=== PATIENT | female | born 1950 | race Caucasian/White ===

== ENCOUNTER 2018-12-27 06:10 | Day surgery (SDC) | payer MEDICARE, MEDICAID ==
[2018-12-27] VITALS (23 sets, daily range): BP systolic 94–129; BP diastolic 61–91
[~2018-12-27] VITALS: Ht 170.2 cm; Wt 88.9 kg
[2018-12-27] MEDS ORDERED: fentaNYL/PF 50MCG/1 ML 2ML syringe IV ONE (06:30)
[2018-12-27] MEDS ORDERED: MIDAZolam 5mg/ml 2ml vial IV ONE (06:30)
[2018-12-27] MEDS ORDERED: normal saline 1000ml 1,000 ML IV SCH (06:30)
[2018-12-27 07:34] LABS: BASOPHILS % (AUTO) 0.6 % (0-1); EOSINOPHILS # (AUTO) 0.2 X10'3 (0-0.9); EOSINOPHILS % (AUTO) 2.8 % (0-6); HEMATOCRIT 41.7 % (35.0-45.0); HEMOGLOBIN 13.9 g/dl (12.0-16.0); LYMPHOCYTES # (AUTO) 2.2 X10'3 (1.1-4.8); LYMPHOCYTES % (AUTO) 39.9 % (21-51); MEAN CORPUSCULAR HEMOGLOBIN 29.2 PG (27.0-31.0); MEAN CORPUSCULAR HGB CONC 33.2 g/dL (33.0-36.5); MEAN CORPUSCULAR VOLUME 87.7 FL (78-98); MEAN PLATELET VOLUME 9.1 FL (7.4-10.4); MONOCYTES # (AUTO) 0.6 X10'3 (0-0.9); MONOCYTES % (AUTO) 10.1 % (2-12); NEUTROPHILS # (AUTO) 2.6 X10'3 (1.8-7.7); NEUTROPHILS % (AUTO) 46.6 % (42-75); PLATELET COUNT 247 X10'3 (140-440); RED BLOOD COUNT 4.76 X10'6 (4.20-5.60); RED CELL DISTRIBUTION WIDTH 14.4 % (11.5-14.5); WHITE BLOOD COUNT 5.5 X10'3 (4.5-11.0)
[2018-12-27 07:47] LABS: ALBUMIN 3.6 G/DL (3.4-5.0); ANION GAP 11 (8-16); BLOOD UREA NITROGEN 15 MG/DL (7-18); BUN/CREATININE RATIO 18.1 (6.6-38.0); CALCIUM 9.1 MG/DL (8.5-10.1); CHLORIDE 107 MMOL/L (99-107); CREATININE 0.83 MG/DL (0.40-0.90); GLUCOSE 113 MG/DL (70-104); MAGNESIUM 1.7 MG/DL (1.5-2.4); POTASSIUM 4.1 MMOL/L (3.5-5.1); SODIUM 143 MMOL/L (135-145); TOTAL CARBON DIOXIDE 25.3 MMOL/L (24-32); eGFR 69 ML/MIN
[2018-12-27 08:06] LABS: INR 1.1 INR; PROTHROMBIN TIME 10.8 SECONDS (9.0-12.0)
[2018-12-27] MEDS ORDERED: DICL100G15 TOP (08:28)
[2018-12-27] MEDS ORDERED: [UNRECOGNIZED DRUG - CODE] PO (08:29)
[2018-12-27] MEDS ORDERED: THYR30TA24 PO (08:30)
[2018-12-27] MEDS ORDERED: CLOP75TA16 PO (08:32)
[2018-12-27] MEDS ORDERED: ALBU8.5H8 IH (08:32)
[2018-12-27] MEDS ORDERED: ALIR150P INJ (08:33)
[2018-12-27] MEDS ORDERED: AMIO200T27 PO (08:35)
[2018-12-27] MEDS ORDERED: APIX5TAB3 PO (08:36)
[2018-12-27] MEDS ORDERED: METO50TA7 PO (08:38)
[2018-12-27] MEDS ORDERED: amiodarone 150mg/dext, iso-os 200 ML IV ONE (09:40)
[2018-12-27] MEDS: metoprolol tartrate 1mg/ml inj IV SCH ×2 (10:39→10:46)
[2018-12-27] MEDS ORDERED: metoprolol tartrate 1mg/ml inj IV ONE (10:50)
== END 2018-12-27 16:35 | disposition home or self-care (01) ==
LOC: SSTAY O 06:10
PROVIDERS: ATTEND Internal Medicine Cardiovascular Disease
DX: I48.1 Persistent atrial fibrillation (principal); I08.1 Rheumatic disorders of both mitral and tricuspid valves; I10 Essential (primary) hypertension; Q21.1 Atrial septal defect; J45.909 Unspecified asthma, uncomplicated; E78.5 Hyperlipidemia, unspecified; I45.81 Long QT syndrome; I25.2 Old myocardial infarction; I25.118 Atherosclerotic heart disease of native coronary artery with other forms of angina pectoris; E03.9 Hypothyroidism, unspecified; Z90.12 Acquired absence of left breast and nipple; Z98.49 Cataract extraction status, unspecified eye; Z79.01 Long term (current) use of anticoagulants; Z87.891 Personal history of nicotine dependence; Z79.1 Long term (current) use of non-steroidal anti-inflammatories (NSAID); Z95.5 Presence of coronary angioplasty implant and graft; Z88.6 Allergy status to analgesic agent; Z85.3 Personal history of malignant neoplasm of breast; Z98.41 Cataract extraction status, right eye; Z98.42 Cataract extraction status, left eye; Z86.74 Personal history of sudden cardiac arrest; Z86.73 Personal history of transient ischemic attack (TIA), and cerebral infarction without residual deficits; Z88.5 Allergy status to narcotic agent; Z98.890 Other specified postprocedural states; Z79.899 Other long term (current) drug therapy; Z88.8 Allergy status to other drugs, medicaments and biological substances
CPT/HCPCS: 36415; 80048; 83735; 85025; 85610; 92960; 93005; 93312; 93325; J0282; J2250; J3010; J7030; J3490

== ENCOUNTER 2019-07-21 11:42 | Day surgery (SDC) | payer MEDICARE, MEDICAID ==
[~2019-07-21] VITALS: Ht 170.2 cm; Wt 95.7 kg
[~2019-07-21 11:42] MED LIST: ALBU8.5H8 IH; ALIR150P INJ; AMIO200T27 PO; APIX5TAB3 PO; CLOP75TA8 PO; DICL100G15 TOP; METO50TA7 PO; THYR30TA24 PO; [UNRECOGNIZED DRUG - CODE] PO
[2019-07-21 12:16] VITALS: BP 117/87
[2019-07-21] MEDS ORDERED: DEC1T PO (12:21)
[2019-07-21] MEDS ORDERED: THY60T PO (12:21)
[2019-07-21] MEDS ORDERED: DIGO250T PO (12:21)
[2019-07-21] MEDS ORDERED: DILT180C53 PO (12:21)
[2019-07-21] MEDS ORDERED: diphenhydrAMINE 25mg capsule PO PRN (12:25)
[2019-07-21] MEDS ORDERED: normal saline 1,000 ML IV SCH (12:25)
[2019-07-21 12:40] LABS: BASOPHILS # (AUTO) 0.1 X10'3 (0-0.2); BASOPHILS % (AUTO) 1.5 % (0-1); EOSINOPHILS # (AUTO) 0.1 X10'3 (0-0.9); EOSINOPHILS % (AUTO) 1.3 % (0-6); HEMATOCRIT 39.3 % (35.0-45.0); HEMOGLOBIN 13.3 g/dl (12.0-16.0); LYMPHOCYTES # (AUTO) 2.8 X10'3 (1.1-4.8); LYMPHOCYTES % (AUTO) 38.5 % (21-51); MEAN CORPUSCULAR HEMOGLOBIN 30.7 PG (27.0-31.0); MEAN CORPUSCULAR HGB CONC 33.8 g/dL (33.0-36.5); MEAN CORPUSCULAR VOLUME 90.8 FL (78-98); MEAN PLATELET VOLUME 8.5 FL (7.4-10.4); MONOCYTES # (AUTO) 0.6 X10'3 (0-0.9); MONOCYTES % (AUTO) 8.3 % (2-12); NEUTROPHILS # (AUTO) 3.6 X10'3 (1.8-7.7); NEUTROPHILS % (AUTO) 50.4 % (42-75); PLATELET COUNT 243 X10'3 (140-440); RED BLOOD COUNT 4.33 X10'6 (4.20-5.60); RED CELL DISTRIBUTION WIDTH 15.1 % (11.5-14.5); WHITE BLOOD COUNT 7.2 X10'3 (4.5-11.0)
[2019-07-21 12:46] LABS: ALBUMIN 3.6 G/DL (3.4-5.0); ANION GAP 8 (8-16); BLOOD UREA NITROGEN 19 MG/DL (7-18); BUN/CREATININE RATIO 22.1 (6.6-38.0); CALCIUM 9.2 MG/DL (8.5-10.1); CHLORIDE 109 MMOL/L (99-107); CREATININE 0.86 MG/DL (0.40-0.90); GLUCOSE 98 MG/DL (70-104); MAGNESIUM 1.7 MG/DL (1.5-2.4); SODIUM 143 MMOL/L (135-145); TOTAL CARBON DIOXIDE 25.8 MMOL/L (24-32); eGFR 66 ML/MIN
[2019-07-21] MEDS ORDERED: fentaNYL/PF 50MCG/1 ML 2ML syringe ONE ×2 (14:02→14:50)
[2019-07-21] MEDS ORDERED: midazolam 2 mg/2 ml injection ONE ×2 (14:02→14:50)
[2019-07-21] MEDS ORDERED: vancomycin 1,000mg inj ONE (14:03)
[2019-07-21] MEDS ORDERED: LIDOcaine 1% W/epiNEPHrine 1:100,000 20ml vial ONE (14:03)
[2019-07-21] MEDS ORDERED: vancomycin/NS 1 GM ADD-VANTAGE 250 ML IV ONE (14:15)
[2019-07-21] MEDS ORDERED: cefazolin/dext.iso 2gm/100ml 100 ML IV ONE (14:15)
[2019-07-21] MEDS ORDERED: proCHLORperazine 10 MG/2 ml inj ONE (14:44)
[2019-07-21 15:36] VITALS: BP 122/74
[2019-07-21 15:50] VITALS: BP 120/77
[2019-07-21 16:05] VITALS: BP 124/82
[2019-07-21 16:20] VITALS: BP 122/52
[2019-07-21 16:50] VITALS: BP 125/70
== END 2019-07-21 17:20 | disposition home or self-care (01) ==
LOC: SSTAY O 11:42
PROVIDERS: ATTEND Internal Medicine Cardiovascular Disease
DX: I49.5 Sick sinus syndrome (principal); I48.91 Unspecified atrial fibrillation; I25.10 Atherosclerotic heart disease of native coronary artery without angina pectoris; I10 Essential (primary) hypertension; E78.5 Hyperlipidemia, unspecified; E03.9 Hypothyroidism, unspecified; Z85.3 Personal history of malignant neoplasm of breast; Z90.12 Acquired absence of left breast and nipple; Z98.49 Cataract extraction status, unspecified eye; Z98.890 Other specified postprocedural states; Z87.891 Personal history of nicotine dependence; Z88.5 Allergy status to narcotic agent; Z79.899 Other long term (current) drug therapy; Z79.01 Long term (current) use of anticoagulants; Z88.8 Allergy status to other drugs, medicaments and biological substances; Z95.5 Presence of coronary angioplasty implant and graft
CPT/HCPCS: 33207; 36415; 71045; 80048; 83735; 85025; 85610; 93005; 99152; 99153; C1786; C1894; C1898; J0780; J2250; J3010; J3370; J7030; Q0163; 33216; 33225; A4565; A4620; A6449

== ENCOUNTER 2019-11-10 09:03 | Day surgery (SDC) | payer MEDICARE, MEDICAID ==
[~2019-11-10] VITALS: Ht 170.2 cm; Wt 95.9 kg
[~2019-11-10 09:03] MED LIST changes: -ALBU8.5H8 IH; -AMIO200T27 PO; +DEC1T PO; -DICL100G15 TOP; +DIGO250T PO; +DILT180C53 PO; +THY60T PO; -THYR30TA24 PO; -[UNRECOGNIZED DRUG - CODE] PO
[2019-11-10] MEDS ORDERED: atropine 0.1mg/ml 10ml syringe IV ONE (09:50)
[2019-11-10] MEDS ORDERED: fentaNYL/PF 50MCG/1 ML 2ML syringe IV ONE (09:50)
[2019-11-10] MEDS ORDERED: MIDAZolam 5mg/ml 2ml vial IV ONE (09:50)
[2019-11-10] MEDS ORDERED: normal saline 1000ml 1,000 ML IV SCH (09:50)
[2019-11-10 10:32] LABS: BASOPHILS # (AUTO) 0.1 X10'3 (0-0.2); BASOPHILS % (AUTO) 0.8 % (0-1); EOSINOPHILS # (AUTO) 0.1 X10'3 (0-0.9); EOSINOPHILS % (AUTO) 1.5 % (0-6); HEMATOCRIT 44.6 % (35.0-45.0); HEMOGLOBIN 14.9 g/dl (12.0-16.0); LYMPHOCYTES # (AUTO) 2.3 X10'3 (1.1-4.8); LYMPHOCYTES % (AUTO) 37.4 % (21-51); MEAN CORPUSCULAR HEMOGLOBIN 29.9 PG (27.0-31.0); MEAN CORPUSCULAR HGB CONC 33.4 g/dL (33.0-36.5); MEAN CORPUSCULAR VOLUME 89.6 FL (78-98); MEAN PLATELET VOLUME 9.4 FL (7.4-10.4); MONOCYTES # (AUTO) 0.5 X10'3 (0-0.9); MONOCYTES % (AUTO) 7.6 % (2-12); NEUTROPHILS # (AUTO) 3.2 X10'3 (1.8-7.7); NEUTROPHILS % (AUTO) 52.7 % (42-75); PLATELET COUNT 233 X10'3 (140-440); RED BLOOD COUNT 4.98 X10'6 (4.20-5.60); RED CELL DISTRIBUTION WIDTH 15.8 % (11.5-14.5); WHITE BLOOD COUNT 6.2 X10'3 (4.5-11.0)
[2019-11-10] MEDS ORDERED: ALBU8.5H8 INH (10:38)
[2019-11-10] MEDS ORDERED: DICL100G15 TOP (10:38)
[2019-11-10] MEDS ORDERED: CLOP75TA33 PO (10:38)
[2019-11-10] MEDS ORDERED: AMIO200T27 PO (10:38)
[2019-11-10 10:41] LABS: ALBUMIN 3.6 G/DL (3.4-5.0); ANION GAP 10 (8-16); BLOOD UREA NITROGEN 11 MG/DL (7-18); BUN/CREATININE RATIO 11.5 (6.6-38.0); CALCIUM 9.2 MG/DL (8.5-10.1); CHLORIDE 108 MMOL/L (99-107); CREATININE 0.96 MG/DL (0.40-0.90); GLUCOSE 109 MG/DL (70-104); MAGNESIUM 1.8 MG/DL (1.5-2.4); POTASSIUM 3.9 MMOL/L (3.5-5.1); SODIUM 145 MMOL/L (135-145); TOTAL CARBON DIOXIDE 27.2 MMOL/L (24-32); eGFR 58 ML/MIN
[2019-11-10 11:38] VITALS: BP 121/87
[2019-11-10 12:07] VITALS: BP 126/44
[2019-11-10 12:10] VITALS: BP 107/58
[2019-11-10 12:13] VITALS: BP 123/71
[2019-11-10 13:30] VITALS: BP 122/62
== END 2019-11-10 13:50 | disposition home or self-care (01) ==
LOC: SSTAY O 09:03
PROVIDERS: ATTEND Internal Medicine Cardiovascular Disease
DX: I48.19 Other persistent atrial fibrillation (principal); Z68.33 Body mass index [BMI] 33.0-33.9, adult; I10 Essential (primary) hypertension; E03.9 Hypothyroidism, unspecified; I25.10 Atherosclerotic heart disease of native coronary artery without angina pectoris
CPT/HCPCS: 36415; 80048; 83735; 85025; 85610; 92960; 93005; J0461; J2250; J3010; J7030

== ENCOUNTER 2020-03-26 18:55 | Observation (INO) | payer MEDICARE, MEDICAID ==
[~2020-03-26] VITALS: Ht 170.2 cm; Wt 53.2 kg
[~2020-03-26 18:55] MED LIST changes: +ALBU8.5H8 INH; +AMIO200T27 PO; +CLOP75TA33 PO; -CLOP75TA8 PO; +DICL100G15 TOP
[2020-03-26] MEDS ORDERED: ondansetron/PF 4mg/2ml inj IV ONE (19:20)
--- NOTE | 2020-03-26 19:27 | NUR ---
[facility] [phone] CELL
[2020-03-26] MEDS ORDERED: mag hydrox/Alum hydrox/simeth 30ml oral suspension PO ONE (19:30)
[2020-03-26] MEDS ORDERED: famotidine/PF 10 mg/ml inj IV ONE (19:30)
[2020-03-26 19:34] LABS: BASOPHILS # (AUTO) 0.1 X10'3 (0-0.2); BASOPHILS % (AUTO) 0.3 % (0-1); EOSINOPHILS % (AUTO) 0.1 % (0-6); HEMATOCRIT 37.7 % (35.0-45.0); HEMOGLOBIN 12.5 g/dl (12.0-16.0); LYMPHOCYTES # (AUTO) 0.9 X10'3 (1.1-4.8); LYMPHOCYTES % (AUTO) 5.1 % (21-51); MEAN CORPUSCULAR HEMOGLOBIN 30.7 PG (27.0-31.0); MEAN CORPUSCULAR HGB CONC 33.1 g/dL (33.0-36.5); MEAN CORPUSCULAR VOLUME 92.6 FL (78-98); MEAN PLATELET VOLUME 8.7 FL (7.4-10.4); MONOCYTES # (AUTO) 0.1 X10'3 (0-0.9); MONOCYTES % (AUTO) 0.5 % (2-12); NEUTROPHILS # (AUTO) 16.6 X10'3 (1.8-7.7); PLATELET COUNT 176 X10'3 (140-440); RED BLOOD COUNT 4.08 X10'6 (4.20-5.60); RED CELL DISTRIBUTION WIDTH 17.6 % (11.5-14.5); WHITE BLOOD COUNT 17.7 X10'3 (4.5-11.0)
[2020-03-26] MEDS ORDERED: IPRA3AMP31 IH (19:42)
[2020-03-26 20:08] LABS: ALANINE AMINOTRANSFERASE 48 U/L (12-78); ALBUMIN 3.2 G/DL (3.4-5.0); ALKALINE PHOSPHATASE 80 IU/L (46-116); ANION GAP 11 (8-16); ASPARTATE AMINO TRANSFERASE 39 U/L (10-37); BILIRUBIN,TOTAL 0.5 MG/DL (0.1-1.0); BLOOD UREA NITROGEN 43 MG/DL (7-18); BUN/CREATININE RATIO 23.5 (6.6-38.0); CALCIUM 8.7 MG/DL (8.5-10.1); CHLORIDE 106 MMOL/L (99-107); CREATININE 1.83 MG/DL (0.40-0.90); GLUCOSE 134 MG/DL (70-104); POTASSIUM 3.9 MMOL/L (3.5-5.1); SODIUM 142 MMOL/L (135-145); TOTAL CARBON DIOXIDE 25.1 MMOL/L (24-32); TOTAL PROTEIN 6.3 G/DL (6.4-8.2); eGFR 27 ML/MIN
[2020-03-26] MEDS ORDERED: temazepam 15mg capsule PO PRN (21:00)
[2020-03-26] MEDS ORDERED: normal saline 1000ml 1,000 ML IV ONE (21:00)
[2020-03-26] MEDS ORDERED: acetaminophen 325mg tablet PO PRN (21:20)
[2020-03-26] MEDS ORDERED: magnesium hydroxide 30ml (MOM) UD suspension PO PRN (21:20)
[2020-03-26] MEDS ORDERED: metoclopramide 5 mg/ml inj IV PRN (21:20)
[2020-03-26] MEDS ORDERED: ondansetron/PF 4mg/2ml inj IV PRN (21:20)
[2020-03-26] MEDS ORDERED: potassium CL 10mEq/100ml bag 100 ML IV PRN ×2 (21:20)
[2020-03-26] MEDS ORDERED: potassium Cl 20 mEq SR tablet PO PRN ×2 (21:20)
[2020-03-26] MEDS ORDERED: mag hydrox/Alum hydrox/simeth 30ml oral suspension PO PRN (21:20)
[2020-03-26] MEDS ORDERED: magnesium 4gm in 100ml NS 100 ML IV PRN (21:20)
[2020-03-26] MEDS ORDERED: magnesium Cl slow-release 64mg tablet PO PRN (21:20)
[2020-03-26] MEDS ORDERED: magnesium 2GM in 50ml NS 50 ML IV PRN (21:20)
[2020-03-26 22:29] LABS: CLARITY,URINE CLEAR (Clear); COLOR,URINE YELLOW (Yellow); GLUCOSE, URINE NEGATIVE (Neg); KETONES,URINE NEGATIVE (Neg); LEUKOCYTE ESTERASE ,URINE SMALL (Neg); NITRITES, URINE NEGATIVE (Neg); OCCULT BLOOD,URINE NEGATIVE (Neg); PH,URINE 5.5 (4.8-8.0); PROTEIN,URINE NEGATIVE (Neg); UROBILINOGEN,URINE 0.2 E.U/dL (0.2-1.0)
[2020-03-26 22:40] LABS: BACTERIA,URINE FEW /HPF (Neg); RBC,URINE 0-2 /HPF (0-2); SQUAMOUS EPITHELIAL CELL,UR FEW /LPF (FEW); UA COLLECTION TYPE CLN CATCH MIDSTREAM
[2020-03-26] MEDS: normal saline 1000ml 1,000 ML IV SCH (23:12)
[2020-03-26 23:20] VITALS: BP 135/67
[2020-03-27] MEDS ORDERED: ipratropium/albuterol 3ml nebule IH PRN (02:00)
[2020-03-27 03:00] VITALS: BP 138/71
[2020-03-27] MEDS: albuterol 2.5 MG/3 ML nebule NEB SCH ×2 (03:00→09:00)
[2020-03-27 03:07] LABS: BASOPHILS % (AUTO) 0.1 % (0-1); EOSINOPHILS % (AUTO) 0.1 % (0-6); HEMATOCRIT 32.5 % (35.0-45.0); HEMOGLOBIN 10.7 g/dl (12.0-16.0); LYMPHOCYTES # (AUTO) 0.7 X10'3 (1.1-4.8); LYMPHOCYTES % (AUTO) 2.9 % (21-51); MEAN CORPUSCULAR HEMOGLOBIN 30.2 PG (27.0-31.0); MEAN CORPUSCULAR HGB CONC 32.8 g/dL (33.0-36.5); MEAN CORPUSCULAR VOLUME 91.9 FL (78-98); MEAN PLATELET VOLUME 8.7 FL (7.4-10.4); MONOCYTES # (AUTO) 0.2 X10'3 (0-0.9); MONOCYTES % (AUTO) 0.7 % (2-12); NEUTROPHILS # (AUTO) 23.5 X10'3 (1.8-7.7); NEUTROPHILS % (AUTO) 96.2 % (42-75); PLATELET COUNT 143 X10'3 (140-440); RED BLOOD COUNT 3.53 X10'6 (4.20-5.60); WHITE BLOOD COUNT 24.5 X10'3 (4.5-11.0)
[2020-03-27 03:09] LABS: ALANINE AMINOTRANSFERASE 43 U/L (12-78); ALBUMIN 3.1 G/DL (3.4-5.0); ALBUMIN/GLOBULIN RATIO 1.1 (1.1-1.5); ALKALINE PHOSPHATASE 63 IU/L (46-116); ANION GAP 6 (8-16); ASPARTATE AMINO TRANSFERASE 29 U/L (10-37); BILIRUBIN,TOTAL 0.7 MG/DL (0.1-1.0); BLOOD UREA NITROGEN 38 MG/DL (7-18); BUN/CREATININE RATIO 24.1 (6.6-38.0); CALCIUM 7.9 MG/DL (8.5-10.1); CHLORIDE 107 MMOL/L (99-107); CREATININE 1.58 MG/DL (0.40-0.90); GLUCOSE 101 MG/DL (70-104); POTASSIUM 4.4 MMOL/L (3.5-5.1); SODIUM 138 MMOL/L (135-145); TOTAL CARBON DIOXIDE 25.4 MMOL/L (24-32); TOTAL PROTEIN 5.9 G/DL (6.4-8.2); eGFR 33 ML/MIN
[2020-03-27 03:18] LABS: MAGNESIUM 1.4 MG/DL (1.5-2.4)
[2020-03-27 04:38] LABS: ANISOCYTOSIS 1+; PLATELET ESTIMATE NORMAL; TOTAL CELLS COUNTED 100
[2020-03-27] MEDS: normal saline 1000ml 1,000 ML IV SCH (05:59)
[2020-03-27 06:00] VITALS: BP 133/67
--- NOTE | 2020-03-27 06:00 | NUR ---
Patient in room PCU 3010. I have received report from Jay MYERS and had the opportunity to ask questions and assume patient care.
--- NOTE | 2020-03-27 06:49 | NUR ---
Problems reprioritized. Patient report given, questions answered & plan of care reviewed with Sujata MYERS. Addendum: 03/27/20 at 0652 by Gregory Dove RN Teri MYERS
[2020-03-27 07:40] LABS: C DIFF ANTIGEN NEGATIVE (NEGATIVE); C DIFF SPECIMEN=DIARRHEA? ACCEPTABLE; C DIFFICILE TOXINS A&B NEGATIVE (Neg)
[2020-03-27] MEDS ORDERED: amiodarone 200mg tablet PO SCH (08:00)
[2020-03-27] MEDS ORDERED: clopidogrel 75mg tablet PO SCH (08:00)
[2020-03-27] MEDS ORDERED: apixaban 5mg tablet PO SCH (08:00)
[2020-03-27] MEDS ORDERED: DEXAMETHASONE 0.5 MG PO SCH (08:00)
[2020-03-27] MEDS ORDERED: thyroid, pork 30mg tablet PO SCH (08:00)
[2020-03-27] MEDS ORDERED: metoprolol succinate 25mg (24-HOUR) SR. Tablet PO SCH (08:00)
[2020-03-27] MEDS ORDERED: diltiazem CD 180mg cap (once-daily) PO SCH (08:00)
[2020-03-27] MEDS ORDERED: K and/or MAG REPLACEMENT MC SCH (08:00)
--- NOTE | 2020-03-27 10:38 | NUR ---
PAGER ID: [phone] MESSAGE: [id number] Fu[address] Salas Lung scan is negative for PE. Yay! Teri 3313
[2020-03-27 11:00] VITALS: BP 125/67
--- NOTE | 2020-03-27 11:32 | NUR ---
PAGER ID: [phone] MESSAGE: [id number] Fu[address] Salas Ortho v/s negative. Lying BP 125/67 HR 60, Sit 116/65 , 67, Stand 110/74, 61. PT is discharging her. Good gait, Spo2 stayed >95%. Teri 3310
[2020-03-27 11:58] VITALS: BP_SYST 110; BP_SYST 116; BP_SYST 125; BP_DIAS 65; BP_DIAS 67; BP_DIAS 74
[2020-03-27] MEDS ORDERED: MAGN400C PO (13:06)
--- NOTE | 2020-03-27 14:00 | NUR ---
Per MD orders patient stable for discharge home. Discharge packet reviewed with patient and all questions answered to patient satisfaction. New prescriptions faxed to pharmacy of preference. PIV discontinued, cannula intact. Tele monitoring discontinued. All belongings sent with patient. Transferred to private vehicle via wheelchair accompanied by aide.
[2020-03-29] MEDS ORDERED: ALIROCUMAB SQ SCH (08:00)
--- NOTE | 2020-03-30 13:38 | NUR ---
Case Management DC follow up: spoke to pt via telephone: reports "still feel weak, no pep in my step". pt believes injection received WBC at last treatment was what made her sick and weak, syncope. Pt upset it she was not informed or educated on this med and was not given the choice. Pt WBC level elevated. Details noted in chart. status post-syncope, hypomagnesium. recent dx small cell Lung cancer, Hx breast CA 23 yrs prior:Currently being treated radiation, chemo. Denies acute/persistent CP, emergent general pain, SOB, resp distress, NV, vertigo, ongoing syncope episodes, CHILD, general/concerning bruising, bleeding, fever, diaphoreses, confusion. Verbalizes understanding of s/s that would warrant 9-11/ER visit for further evaluation. Verbalizes understanding of current and/or new Rx; taking as ordered, no ase noted r/t polypharmacy. Acknowledges need to schedule/keep follow up appts w/PCP [facility], waiting for call back to schedule Labs & follow up assessment. 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 [facility] intake 03/30/20, ordering pt a 4WW/will be at pt home 2x week. All questions/concerns addressed and answered at DC; Verbalizes understanding of post status after-care compliance. No further questions at this time.
== END 2020-03-27 14:17 | disposition home health service (06) ==
LOC: ER 18:57 → ED HOLD 21:17 → PCU 3S 22:37
PROVIDERS: ADMIT Family Medicine; ATTEND Family Medicine
DX: R55 Syncope and collapse (principal); N17.9 Acute kidney failure, unspecified; N18.9 Chronic kidney disease, unspecified; I48.91 Unspecified atrial fibrillation; R00.1 Bradycardia, unspecified; E78.5 Hyperlipidemia, unspecified; D72.819 Decreased white blood cell count, unspecified; I25.10 Atherosclerotic heart disease of native coronary artery without angina pectoris; I25.2 Old myocardial infarction; I49.3 Ventricular premature depolarization; E83.42 Hypomagnesemia; C34.90 Malignant neoplasm of unspecified part of unspecified bronchus or lung; E86.0 Dehydration; E89.0 Postprocedural hypothyroidism; R11.10 Vomiting, unspecified; J45.909 Unspecified asthma, uncomplicated; Z85.118 Personal history of other malignant neoplasm of bronchus and lung; Z85.3 Personal history of malignant neoplasm of breast; Z86.73 Personal history of transient ischemic attack (TIA), and cerebral infarction without residual deficits; Z95.5 Presence of coronary angioplasty implant and graft; Z90.10 Acquired absence of unspecified breast and nipple; Z98.51 Tubal ligation status; Z79.01 Long term (current) use of anticoagulants; Z79.899 Other long term (current) drug therapy; Z88.5 Allergy status to narcotic agent; Z88.8 Allergy status to other drugs, medicaments and biological substances
CPT/HCPCS: 36415; 71045; 78580; 80053; 81001; 83735; 84439; 84443; 84484; 85025; 87081; 87088; 87324; 87449; 93005; 96361; 96374; 96375; 97116; 97161; 97530; 99285; A9540; G0378; J2405; J3490; J7030

== ENCOUNTER 2020-08-22 23:56 | Inpatient (IN) | payer MEDICARE, MEDICAID ==
[~2020-08-22] VITALS: Ht 170.2 cm; Wt 77.2 kg
[~2020-08-22 23:56] MED LIST changes: -DIGO250T PO; +IPRA3AMP31 IH; +MAGN400C PO
[2020-08-23 00:20] LABS: EOSINOPHILS # (AUTO) 0.1 X10'3 (0-0.9); EOSINOPHILS % (AUTO) 3.2 % (0-6); HEMATOCRIT 34.8 % (35.0-45.0); HEMOGLOBIN 11.8 g/dl (12.0-16.0); LYMPHOCYTES # (AUTO) 1.2 X10'3 (1.1-4.8); LYMPHOCYTES % (AUTO) 28.7 % (21-51); MEAN CORPUSCULAR HEMOGLOBIN 29.9 PG (27.0-31.0); MEAN CORPUSCULAR HGB CONC 33.7 g/dL (33.0-36.5); MEAN CORPUSCULAR VOLUME 88.7 FL (78-98); MEAN PLATELET VOLUME 8.4 FL (7.4-10.4); MONOCYTES # (AUTO) 0.5 X10'3 (0-0.9); MONOCYTES % (AUTO) 10.9 % (2-12); NEUTROPHILS # (AUTO) 2.3 X10'3 (1.8-7.7); NEUTROPHILS % (AUTO) 56.2 % (42-75); PLATELET COUNT 188 X10'3 (140-440); RED BLOOD COUNT 3.93 X10'6 (4.20-5.60); RED CELL DISTRIBUTION WIDTH 14.6 % (11.5-14.5); WHITE BLOOD COUNT 4.1 X10'3 (4.5-11.0)
[2020-08-23 00:37] LABS: ALANINE AMINOTRANSFERASE 24 U/L (12-78); ALBUMIN 3.2 G/DL (3.4-5.0); ALBUMIN/GLOBULIN RATIO 0.8 (1.1-1.5); ALKALINE PHOSPHATASE 61 IU/L (46-116); ANION GAP 11 (8-16); ASPARTATE AMINO TRANSFERASE 32 U/L (10-37); BILIRUBIN,TOTAL 0.7 MG/DL (0.1-1.0); BLOOD UREA NITROGEN 24 MG/DL (7-18); BUN/CREATININE RATIO 11.1 (6.6-38.0); CALCIUM 9.5 MG/DL (8.5-10.1); CHLORIDE 104 MMOL/L (99-107); CREATININE 2.16 MG/DL (0.40-0.90); GLUCOSE 90 MG/DL (70-104); POTASSIUM 3.8 MMOL/L (3.5-5.1); SODIUM 141 MMOL/L (135-145); TOTAL CARBON DIOXIDE 25.7 MMOL/L (24-32); TOTAL PROTEIN 7.1 G/DL (6.4-8.2); eGFR 23 ML/MIN
[2020-08-23] MEDS ORDERED: normal saline 1000ml 1,000 ML IV ONE (00:40)
[2020-08-23] MEDS ORDERED: CefTRIAXone/D5W-Rocephin 1gm 50 ML IV ONE (01:30)
[2020-08-23] MEDS ORDERED: azithromycin/NS 500mg/250ml 250 ML IV ONE (01:30)
[2020-08-23 02:09] LABS: TROPONIN I 0.05 NG/ML (0.0-0.05)
[2020-08-23 02:44] LABS: CLARITY,URINE CLEAR (Clear); COLOR,URINE YELLOW (Yellow); GLUCOSE, URINE NEGATIVE (Neg); KETONES,URINE 15 mg/dl (Neg); LEUKOCYTE ESTERASE ,URINE NEGATIVE (Neg); NITRITES, URINE NEGATIVE (Neg); OCCULT BLOOD,URINE NEGATIVE (Neg); PH,URINE 5.5 (4.8-8.0); PROTEIN,URINE NEGATIVE (Neg); UA COLLECTION TYPE STRAIGHT CATH; UROBILINOGEN,URINE 0.2 E.U/dL (0.2-1.0)
[2020-08-23] MEDS ORDERED: acetaminophen 325mg tablet PO PRN (03:05)
[2020-08-23] MEDS ORDERED: magnesium Cl slow-release 64mg tablet PO PRN (03:05)
[2020-08-23] MEDS ORDERED: potassium Cl 20 mEq SR tablet PO PRN ×2 (03:05)
[2020-08-23] MEDS ORDERED: magnesium 4gm in 100ml NS 100 ML IV PRN (03:05)
[2020-08-23] MEDS ORDERED: ondansetron/PF 4mg/2ml inj IV PRN (03:05)
[2020-08-23] MEDS ORDERED: magnesium 2GM in 50ml NS 50 ML IV PRN (03:05)
[2020-08-23] MEDS ORDERED: potassium CL 10mEq/100ml bag 100 ML IV PRN ×2 (03:05)
[2020-08-23 03:26] LABS: D-DIMER 0.97 MG/L FEU (0-0.50)
[2020-08-23 04:50] VITALS: BP 134/58
--- NOTE | 2020-08-23 06:00 | NUR ---
Patient in room ORTHO 4018. I have received report from Cherry and had the opportunity to ask questions and assume patient care.
--- NOTE | 2020-08-23 06:06 | NUR ---
I RC'D REPORT FROM ED RN, ABHIJIT AND ASSUMED CARE OF THIS PATIENT WHEN SHE ARRIVED ON THE UNIT AT 0435. AMBULATED PATIENT TO THE BATHROOM WITH 2 ASSIST TO VOID THEN TO THE BED. GAIT IS WEAK/UNSTEADY. VITAL SIGNS TAKEN AND RECORDED. PATIENT ALERT AND ORIENTED TO PLACE AND REASON FOR HOSPITALIZATION, BUT HAD DIFFICULTY WITH QUESTIONS REGARDING MEDICAL HISTORY. REPORT TO LATOYA MYERS AT SHIFT CHANGE.
[2020-08-23] MEDS: normal saline 1000ml 1,000 ML IV SCH ×3 (08:00→17:55)
[2020-08-23] MEDS: K and/or MAG REPLACEMENT MC SCH ×2 (08:00→19:38)
[2020-08-23] MEDS ORDERED: heparin, porcine 5000 units/ml vial SQ SCH (08:00)
[2020-08-23] MEDS: metoprolol succinate 25mg (24-HOUR) SR. Tablet PO SCH ×2 (09:59→20:00)
[2020-08-23 10:00] VITALS: BP 117/54
[2020-08-23] MEDS ORDERED: ALIROCUMAB IJ SCH (10:05)
[2020-08-23] MEDS ORDERED: ipratropium/albuterol 3ml nebule ONE (10:32)
[2020-08-23] MEDS: ipratropium/albuterol 3ml nebule IH SCH ×4 (10:46→23:53)
--- NOTE | 2020-08-23 15:20 | NUR ---
Patient was up in recliner chair, gate belt on and call light right next to pt when she decided to try and get up herselfto go back to bed. Patient fell to floor 3 nurses were able to help her up right away and put her in her bed with tabs, fall risk bracelet,bed low locket position and call ight within reach. Patient said that she didnt hurt anything and there are no yeung on her. Patient said she will not try that again without asking for help first.
--- NOTE | 2020-08-23 15:48 | NUR ---
2749 Chris Salas Patient was in recliner and decided to get up to get back and bed without using call light and fell to floor. Patient said nothing hurts just letting you know. #[phone] Ellie
--- NOTE | 2020-08-23 15:49 | NUR ---
Patient asleep and requested not to be awaken for SVN tx. No shortness of breath noted. Addendum: 08/23/20 at 1549 by Eugenia Maier RT Amended: Links added.
[2020-08-23] MEDS: CefTRIAXone 2gm/D5W 50ml 50 ML IV SCH (16:05)
[2020-08-23 18:00] VITALS: BP 124/58
[2020-08-23] MEDS: lactose-reduced food (Ensure Enlive) - 237ml bottle PO SCH (18:00)
--- NOTE | 2020-08-23 18:17 | NUR ---
Problems reprioritized. Patient report given, questions answered & plan of care reviewed with Nallely.
[2020-08-23] MEDS: diltiazem CD 180mg cap (once-daily) PO SCH (20:00)
[2020-08-23] MEDS: apixaban 5mg tablet PO SCH (20:37)
[2020-08-23 22:00] VITALS: BP 123/56
[2020-08-24] MEDS: ipratropium/albuterol 3ml nebule IH SCH ×5 (03:44→20:08)
[2020-08-24 05:27] LABS: EOSINOPHILS # (AUTO) 0.1 X10'3 (0-0.9); EOSINOPHILS % (AUTO) 3.3 % (0-6); HEMATOCRIT 29.4 % (35.0-45.0); HEMOGLOBIN 9.8 g/dl (12.0-16.0); LYMPHOCYTES # (AUTO) 0.8 X10'3 (1.1-4.8); LYMPHOCYTES % (AUTO) 27.9 % (21-51); MEAN CORPUSCULAR HEMOGLOBIN 29.3 PG (27.0-31.0); MEAN CORPUSCULAR HGB CONC 33.3 g/dL (33.0-36.5); MEAN CORPUSCULAR VOLUME 88.1 FL (78-98); MEAN PLATELET VOLUME 8.3 FL (7.4-10.4); MONOCYTES # (AUTO) 0.3 X10'3 (0-0.9); MONOCYTES % (AUTO) 10.9 % (2-12); NEUTROPHILS # (AUTO) 1.6 X10'3 (1.8-7.7); NEUTROPHILS % (AUTO) 56.9 % (42-75); PLATELET COUNT 152 X10'3 (140-440); RED BLOOD COUNT 3.34 X10'6 (4.20-5.60); RED CELL DISTRIBUTION WIDTH 14.6 % (11.5-14.5); WHITE BLOOD COUNT 2.8 X10'3 (4.5-11.0)
[2020-08-24 07:08] LABS: ALANINE AMINOTRANSFERASE 17 U/L (12-78); ALBUMIN 2.7 G/DL (3.4-5.0); ALBUMIN/GLOBULIN RATIO 0.8 (1.1-1.5); ALKALINE PHOSPHATASE 48 IU/L (46-116); ANION GAP 13 (8-16); ASPARTATE AMINO TRANSFERASE 22 U/L (10-37); BILIRUBIN,TOTAL 0.5 MG/DL (0.1-1.0); BLOOD UREA NITROGEN 16 MG/DL (7-18); CALCIUM 8.5 MG/DL (8.5-10.1); CHLORIDE 108 MMOL/L (99-107); GLUCOSE 71 MG/DL (70-104); MAGNESIUM 1.3 MG/DL (1.5-2.4); POTASSIUM 3.7 MMOL/L (3.5-5.1); SODIUM 142 MMOL/L (135-145); TOTAL CARBON DIOXIDE 21.4 MMOL/L (24-32); eGFR 32 ML/MIN
[2020-08-24 07:34] LABS: PLATELET ESTIMATE NORMAL; TOTAL CELLS COUNTED 100
[2020-08-24] MEDS: diltiazem CD 180mg cap (once-daily) PO SCH ×3 (08:00→20:00)
[2020-08-24] MEDS: K and/or MAG REPLACEMENT MC SCH ×2 (08:00→20:00)
[2020-08-24] MEDS: levoTHYROXINE 25mcg tablet PO SCH (08:46)
[2020-08-24] MEDS: amiodarone 200mg tablet PO SCH (08:47)
[2020-08-24] MEDS: dexamethasone 1mg tablet PO SCH (08:48)
[2020-08-24] MEDS: clopidogrel 75mg tablet PO SCH (08:49)
[2020-08-24] MEDS: apixaban 5mg tablet PO SCH ×2 (08:49→20:00)
[2020-08-24] MEDS: lactose-reduced food (Ensure Enlive) - 237ml bottle PO SCH ×3 (08:50→18:22)
[2020-08-24] MEDS: metoprolol succinate 25mg (24-HOUR) SR. Tablet PO SCH ×2 (08:50→20:00)
[2020-08-24] MEDS: normal saline 1000ml 1,000 ML IV SCH ×2 (09:05→22:26)
[2020-08-24 10:00] VITALS: BP 132/64
--- NOTE | 2020-08-24 10:00 | NUR ---
Dr olivera aware patient did not get Cardizem today because she vomited pill seen in emesis. MD aware of patients current vitals of BP 132/64 HR 51 ok to hold .
[2020-08-24] MEDS ORDERED: azithromycin 250mg tablet PO SCH (10:10)
--- NOTE | 2020-08-24 11:05 | NUR ---
PAGER ID: [phone] MESSAGE: Yusuf Crain3 Josue refuses the Covid test !!
--- NOTE | 2020-08-24 11:51 | NUR ---
DM Consult: Pt has no hx DM, no A1C this admit, Glu WNL on regular diet, and likely consult error. Addendum: 08/24/20 at [address] Amended: Links added.
--- NOTE | 2020-08-24 12:00 | NUR ---
Dr Duff spoke to patient and she was agreeable to Covid test. Mary MYERS and Dr Duff in room for Covid test. Covid test complete
--- NOTE | 2020-08-24 12:59 | NUR ---
PAGER ID: [phone] MESSAGE: [phone] Lolita Salas COVID is negative [facility]
--- NOTE | 2020-08-24 14:53 | NUR ---
spoke to patients daughter Art and gave her some information but she is requesting to speak with Dr Duff, advised her I would page him to see if he could call her. PAGER ID: [phone] MESSAGE: Yusuf [phone] Re: Salas please call daughter has questions for you would like you to call if you have a chance. Dr Duff stated he would call her at [phone]
[2020-08-24] MEDS: azithromycin/NS 500mg/250ml 250 ML IV SCH (16:43)
[2020-08-24 18:00] VITALS: BP 97/44
--- NOTE | 2020-08-24 18:42 | NUR ---
Problems reprioritized. Patient report given, questions answered & plan of care reviewed with Nallely MYERS.
[2020-08-24] MEDS: CefTRIAXone 2gm/D5W 50ml 50 ML IV SCH (19:10)
--- NOTE | 2020-08-24 20:14 | NUR ---
In room with patient to assess BP prior to med pass. Pt at this time is not agreeable to taking medications as ordered stating "she does not take these medications and wants to speak to the doctor who ordered them." Attempt made to educate patient about medications but she continues to verbalize that she does not take them." Pt wishes will be honored at this time.
--- NOTE | 2020-08-24 20:15 | NUR ---
Patient refused 1999 SVN breathing treatment.
[2020-08-24 20:18] VITALS: BP 95/51
[2020-08-24 22:00] VITALS: BP 121/43
[2020-08-25] MEDS: ipratropium/albuterol 3ml nebule IH SCH ×3 (03:00→08:00)
[2020-08-25 06:00] VITALS: BP 128/67
--- NOTE | 2020-08-25 06:30 | NUR ---
Report given to Margot MYERS.
--- NOTE | 2020-08-25 06:40 | NUR ---
Patient in room ORTHO 4020. I have received report from Nallely Mendez RN and had the opportunity to ask questions and assume patient care.
[2020-08-25] MEDS: levoTHYROXINE 25mcg tablet PO SCH (07:00)
[2020-08-25] MEDS: metoprolol succinate 25mg (24-HOUR) SR. Tablet PO SCH (08:00)
[2020-08-25] MEDS: amiodarone 200mg tablet PO SCH (08:00)
[2020-08-25] MEDS: clopidogrel 75mg tablet PO SCH (08:00)
[2020-08-25] MEDS: dexamethasone 1mg tablet PO SCH (08:00)
[2020-08-25] MEDS: apixaban 5mg tablet PO SCH (08:00)
[2020-08-25] MEDS: diltiazem CD 180mg cap (once-daily) PO SCH (08:00)
[2020-08-25] MEDS: azithromycin/NS 500mg/250ml 250 ML IV SCH (08:00)
--- NOTE | 2020-08-25 08:27 | NUR ---
Student documentation: I have reviewed assessment performed and documented by Saurav FELIZ [facility].
--- NOTE | 2020-08-25 08:56 | NUR ---
Patient refused SVN tx @ this time. No Shortness of breath noted. Addendum: 08/25/20 at 0932 by Eugenia Maier RT Amended: Links added.
[2020-08-25 08:59] LABS: BASOPHILS % (AUTO) 0.7 % (0-1); EOSINOPHILS # (AUTO) 0.1 X10'3 (0-0.9); EOSINOPHILS % (AUTO) 2.7 % (0-6); HEMATOCRIT 30.1 % (35.0-45.0); HEMOGLOBIN 9.9 g/dl (12.0-16.0); LYMPHOCYTES # (AUTO) 0.8 X10'3 (1.1-4.8); MEAN CORPUSCULAR HEMOGLOBIN 29.2 PG (27.0-31.0); MEAN CORPUSCULAR HGB CONC 33.1 g/dL (33.0-36.5); MEAN CORPUSCULAR VOLUME 88.5 FL (78-98); MEAN PLATELET VOLUME 8.1 FL (7.4-10.4); MONOCYTES # (AUTO) 0.3 X10'3 (0-0.9); MONOCYTES % (AUTO) 9.9 % (2-12); NEUTROPHILS # (AUTO) 2.2 X10'3 (1.8-7.7); NEUTROPHILS % (AUTO) 64.7 % (42-75); PLATELET COUNT 161 X10'3 (140-440); WHITE BLOOD COUNT 3.5 X10'3 (4.5-11.0)
--- NOTE | 2020-08-25 09:00 | NUR ---
Patient refusing all medications. Tried to educated patients on purpose of medications. Patient still refusing all medications because she states she want to talk to the doctor right now and for him to tell him why she is taking all these medications. Let Dr. Duff know patient is refusing medications.
[2020-08-25 09:09] LABS: ALANINE AMINOTRANSFERASE 16 U/L (12-78); ALBUMIN 2.7 G/DL (3.4-5.0); ALBUMIN/GLOBULIN RATIO 0.8 (1.1-1.5); ALKALINE PHOSPHATASE 45 IU/L (46-116); ANION GAP 8 (8-16); ASPARTATE AMINO TRANSFERASE 20 U/L (10-37); BILIRUBIN,TOTAL 0.5 MG/DL (0.1-1.0); BLOOD UREA NITROGEN 10 MG/DL (7-18); BUN/CREATININE RATIO 7.1 (6.6-38.0); CALCIUM 8.6 MG/DL (8.5-10.1); CHLORIDE 108 MMOL/L (99-107); CREATININE 1.41 MG/DL (0.40-0.90); GLUCOSE 89 MG/DL (70-104); POTASSIUM 4.2 MMOL/L (3.5-5.1); SODIUM 140 MMOL/L (135-145); TOTAL CARBON DIOXIDE 23.8 MMOL/L (24-32); TOTAL PROTEIN 6.1 G/DL (6.4-8.2); eGFR 37 ML/MIN
[2020-08-25] MEDS ORDERED: megestrol acetate 400mg/10ml UD oral suspension PO SCH (09:49)
[2020-08-25 10:00] VITALS: BP 118/58
[2020-08-25] MEDS ORDERED: PANT40TA54 PO (10:00)
[2020-08-25] MEDS ORDERED: LEVO25TA7 PO (10:00)
[2020-08-25] MEDS ORDERED: AZIT500T9 PO (10:00)
[2020-08-25] MEDS ORDERED: ONDA4TAB6 PO (10:00)
[2020-08-25] MEDS ORDERED: MEGE400O6 PO (10:00)
[2020-08-25] MEDS ORDERED: CEFD300C3 PO (10:00)
[2020-08-25] MEDS ORDERED: pantoprazole 40 MG vial IV ONE (10:05)
--- NOTE | 2020-08-25 12:12 | NUR ---
Nutrition consult "Pt not eating at home past few days": Pt admit DX LLL PNA, possible lung infarct, weakness, and hypothyroidism per EMR. Hx prior breast CA and current lung CA receiving chemo/radiation per RN. No scaled wt this admit though RN reports pt does not appear cachectic at this time. Refusing all meals/meds/ONS ensure enlives today per RN; AOx3 and was not appropriate for CM interview yesterday per EMR. AOx3 in addition to chemo/radiation and respiratory status all to likely impact PO. LBM 08/22. Pending discharge today per RN. Megace ordered to start today per EMR. IF remains admit would benefit from continued encouragement w/ meals. Currently pt has normal strength, no edema/wounds, and no visible muscle/fat wasting and does not meet minimum malnutrition criteria at this time. Will continue to monitor. To f/u 08/28 for initial assessment. Addendum: 08/25/20 at [address] Amended: Links added.
--- NOTE | 2020-08-25 12:49 | NUR ---
Student documentation: I have reviewed assessment performed and documented by Saurav FELIZ [facility].
--- NOTE | 2020-08-25 17:00 | NUR ---
Patient stable for DC home today. All instruction given to patient and daughter Art. IV removed with cannula intact and all belongings sent home with patient.
== END 2020-08-25 15:50 | disposition home or self-care (01) | DRG 193 ==
LOC: ER 23:56 → ED HOLD 08-23 03:05 → ORTHO 4S 08-23 04:40
PROVIDERS: ADMIT Internal Medicine; ATTEND Family Medicine
DX: J18.9 Pneumonia, unspecified organism (principal); E43 Unspecified severe protein-calorie malnutrition; N17.9 Acute kidney failure, unspecified; J45.909 Unspecified asthma, uncomplicated; Z20.828 Contact with and (suspected) exposure to other viral communicable diseases; I25.10 Atherosclerotic heart disease of native coronary artery without angina pectoris; N18.9 Chronic kidney disease, unspecified; Z85.3 Personal history of malignant neoplasm of breast; Z85.118 Personal history of other malignant neoplasm of bronchus and lung; Z68.26 Body mass index [BMI] 26.0-26.9, adult; I25.2 Old myocardial infarction; Z86.73 Personal history of transient ischemic attack (TIA), and cerebral infarction without residual deficits
CPT/HCPCS: 36415; 70450; 71045; 76937; 78582; 80053; 81003; 83605; 83735; 83880; 84145; 84439; 84443; 84484; 85007; 85025; 85379; 87040; 87081; 87635; 93005; 94640; 94760; 96365; 96367; 97161; 97530; 99285; A9539; A9540; G0378; J0456; J0696; J2405; J3475; J7030; J8540

== ENCOUNTER 2020-11-24 17:11 | Emergency (ER) | payer MEDICARE, MEDICAID ==
[~2020-11-24] VITALS: Ht 170.2 cm; Wt 75.0 kg
[~2020-11-24 17:11] MED LIST changes: -ALBU8.5H8 INH; +AZIT500T9 PO; +LEVO25TA7 PO; -MAGN400C PO; +MEGE400O6 PO; +ONDA4TAB6 PO; +PANT40TA54 PO; -THY60T PO
[2020-11-24 18:36] LABS: BASOPHILS % (AUTO) 0.6 % (0-1); EOSINOPHILS # (AUTO) 0.1 X10'3 (0-0.9); EOSINOPHILS % (AUTO) 2.1 % (0-6); HEMATOCRIT 38.8 % (35.0-45.0); HEMOGLOBIN 12.9 g/dl (12.0-16.0); LYMPHOCYTES # (AUTO) 1.1 X10'3 (1.1-4.8); LYMPHOCYTES % (AUTO) 34.6 % (21-51); MEAN CORPUSCULAR HEMOGLOBIN 30.5 PG (27.0-31.0); MEAN CORPUSCULAR HGB CONC 33.3 g/dL (33.0-36.5); MEAN CORPUSCULAR VOLUME 91.5 FL (78-98); MEAN PLATELET VOLUME 8.6 FL (7.4-10.4); MONOCYTES # (AUTO) 0.4 X10'3 (0-0.9); MONOCYTES % (AUTO) 12.7 % (2-12); NEUTROPHILS # (AUTO) 1.6 X10'3 (1.8-7.7); PLATELET COUNT 190 X10'3 (140-440); RED BLOOD COUNT 4.24 X10'6 (4.20-5.60); RED CELL DISTRIBUTION WIDTH 14.1 % (11.5-14.5); WHITE BLOOD COUNT 3.3 X10'3 (4.5-11.0)
[2020-11-24 18:38] LABS: ALANINE AMINOTRANSFERASE 26 U/L (12-78); ALBUMIN 3.6 G/DL (3.4-5.0); ALKALINE PHOSPHATASE 56 IU/L (46-116); ANION GAP 11 (8-16); ASPARTATE AMINO TRANSFERASE 28 U/L (10-37); BLOOD UREA NITROGEN 19 MG/DL (7-18); BUN/CREATININE RATIO 10.2 (6.6-38.0); CALCIUM 9.4 MG/DL (8.5-10.1); CHLORIDE 105 MMOL/L (99-107); CREATININE 1.87 MG/DL (0.40-0.90); GLUCOSE 105 MG/DL (70-104); POTASSIUM 3.7 MMOL/L (3.5-5.1); SODIUM 141 MMOL/L (135-145); TOTAL CARBON DIOXIDE 25.5 MMOL/L (24-32); TOTAL PROTEIN 7.1 G/DL (6.4-8.2); eGFR 27 ML/MIN
[2020-11-24] MEDS ORDERED: ondansetron/PF 4mg/2ml inj IV ONE (20:55)
[2020-11-24] MEDS ORDERED: normal saline 1000ML IV soln IVB ONE (20:55)
[2020-11-24 21:04] LABS: TROPONIN I 0.05 NG/ML (0.0-0.05)
--- NOTE | 2020-11-24 21:40 | NUR ---
ATTEMPTED 2 IV STARTS IN BOTH TIMES AND VEIN BLEW. PATIENT IS ON BLOOD THINNERS.
--- NOTE | 2020-11-24 21:46 | NUR ---
PATIENT IN CT SCAN, PATIENT REFUSED IV CONTRAST, LAVELLE LINDSAY
--- NOTE | 2020-11-24 21:48 | NUR ---
PATIENT TRANSFERED TO ROOM 11 AND REPORT GIVEN TO MADHAVI MYERS. SPREADER BOX OPERATOR TO START IV
--- NOTE | 2020-11-24 22:14 | NUR ---
REPORT TO TYSON MYERS CHARGE
--- NOTE | 2020-11-24 22:33 | NUR ---
LAVELLE WARD IN ROOM, COVID NEGATIVE, [employer] STOPPED UP TO BSC ONLY A FEW DROPS MINIMAL ASSIST: PER PA SEND URINE ANYWAY LAVELLE WARD TO DISCHRGE PATIENT HOME AFTER 2 LITERS OF NS INFUSED: LUIS EDUARDO MELCHOR RN AWARE
[2020-11-24] MEDS ORDERED: PROC-8 PO (22:34)
[2020-11-24 22:51] LABS: CLARITY,URINE SLIGHTLY CLOUDY (Clear); COLOR,URINE YELLOW (Yellow); GLUCOSE, URINE NEGATIVE (Neg); KETONES,URINE 15 mg/dl (Neg); LEUKOCYTE ESTERASE ,URINE NEGATIVE (Neg); NITRITES, URINE NEGATIVE (Neg); OCCULT BLOOD,URINE NEGATIVE (Neg); PH,URINE 5.5 (4.8-8.0); PROTEIN,URINE NEGATIVE (Neg)
[2020-11-24 22:53] LABS: UA COLLECTION TYPE CLN CATCH MIDSTREAM
[2020-11-24 22:57] LABS: BACTERIA,URINE 3+ /HPF (Neg); RBC,URINE NONE SEEN /HPF (0-2); SQUAMOUS EPITHELIAL CELL,UR MANY /LPF (FEW); WBC,URINE 0-4 /HPF (0-4)
[2020-11-24 23:20] VITALS: BP 134/95
== END 2020-11-24 23:48 | disposition home or self-care (01) ==
LOC: ER 17:11
DX: B34.9 Viral infection, unspecified (principal); E86.0 Dehydration; R11.2 Nausea with vomiting, unspecified; Z20.828 Contact with and (suspected) exposure to other viral communicable diseases; I25.10 Atherosclerotic heart disease of native coronary artery without angina pectoris; I25.2 Old myocardial infarction; J45.909 Unspecified asthma, uncomplicated; Z86.73 Personal history of transient ischemic attack (TIA), and cerebral infarction without residual deficits; Z98.51 Tubal ligation status; Z85.118 Personal history of other malignant neoplasm of bronchus and lung; Z85.3 Personal history of malignant neoplasm of breast; Z98.890 Other specified postprocedural states; Z88.6 Allergy status to analgesic agent; Z88.5 Allergy status to narcotic agent; Z79.01 Long term (current) use of anticoagulants; Z79.899 Other long term (current) drug therapy; R06.89 Other abnormalities of breathing
CPT/HCPCS: 36415; 70450; 71045; 71250; 74176; 80053; 81001; 83880; 84484; 85025; 87635; 93005; 96361; 96374; 99285; C9803; J2405; J7030

== ENCOUNTER 2021-01-22 19:04 | Emergency (ER) | payer MEDICARE, MEDICAID ==
[~2021-01-22] VITALS: Ht 170.2 cm; Wt 66.4 kg
[~2021-01-22 19:04] MED LIST changes: -AZIT500T9 PO; -DICL100G15 TOP; -DILT180C53 PO; -IPRA3AMP31 IH; +LEVO25TA2 PO; -LEVO25TA7 PO; -METO50TA7 PO; +ONDA4TAB12 PO; -ONDA4TAB6 PO; -PANT40TA54 PO; +THYR120T2 PO
[2021-01-22 19:06] VITALS: BP 141/72
[2021-01-22 19:49] LABS: BASOPHILS % (AUTO) 0.5 % (0-1); EOSINOPHILS % (AUTO) 0.1 % (0-6); HEMATOCRIT 29.7 % (35.0-45.0); HEMOGLOBIN 9.9 g/dl (12.0-16.0); LYMPHOCYTES # (AUTO) 0.5 X10'3 (1.1-4.8); LYMPHOCYTES % (AUTO) 12.1 % (21-51); MEAN CORPUSCULAR HEMOGLOBIN 31.4 PG (27.0-31.0); MEAN CORPUSCULAR HGB CONC 33.5 g/dL (33.0-36.5); MEAN CORPUSCULAR VOLUME 93.7 FL (78-98); MEAN PLATELET VOLUME 8.1 FL (7.4-10.4); MONOCYTES # (AUTO) 0.3 X10'3 (0-0.9); MONOCYTES % (AUTO) 7.2 % (2-12); NEUTROPHILS # (AUTO) 3.7 X10'3 (1.8-7.7); NEUTROPHILS % (AUTO) 80.1 % (42-75); PLATELET COUNT 206 X10'3 (140-440); RED BLOOD COUNT 3.17 X10'6 (4.20-5.60); RED CELL DISTRIBUTION WIDTH 17.8 % (11.5-14.5); WHITE BLOOD COUNT 4.6 X10'3 (4.5-11.0)
[2021-01-22 19:58] LABS: ALANINE AMINOTRANSFERASE 24 U/L (12-78); ALBUMIN 2.9 G/DL (3.4-5.0); ALBUMIN/GLOBULIN RATIO 0.9 (1.1-1.5); ALKALINE PHOSPHATASE 109 IU/L (46-116); ANION GAP 11 (8-16); ASPARTATE AMINO TRANSFERASE 25 U/L (10-37); BILIRUBIN,TOTAL 0.3 MG/DL (0.1-1.0); BLOOD UREA NITROGEN 25 MG/DL (7-18); BUN/CREATININE RATIO 18.9 (6.6-38.0); CALCIUM 8.2 MG/DL (8.5-10.1); CHLORIDE 108 MMOL/L (99-107); CREATININE 1.32 MG/DL (0.40-0.90); GLUCOSE 130 MG/DL (70-104); SODIUM 143 MMOL/L (135-145); eGFR 40 ML/MIN
== END 2021-01-22 22:15 | disposition home or self-care (01) ==
LOC: ER 19:05
DX: Z02.89 Encounter for other administrative examinations (principal); D64.9 Anemia, unspecified; I25.10 Atherosclerotic heart disease of native coronary artery without angina pectoris; I25.2 Old myocardial infarction; J45.909 Unspecified asthma, uncomplicated; Z86.73 Personal history of transient ischemic attack (TIA), and cerebral infarction without residual deficits; Z87.01 Personal history of pneumonia (recurrent); Z85.3 Personal history of malignant neoplasm of breast; Z85.118 Personal history of other malignant neoplasm of bronchus and lung; Z98.51 Tubal ligation status; Z98.890 Other specified postprocedural states; Z88.6 Allergy status to analgesic agent; Z88.5 Allergy status to narcotic agent; Z88.8 Allergy status to other drugs, medicaments and biological substances; Z79.899 Other long term (current) drug therapy; W19.XXXA Unspecified fall, initial encounter; Y93.89 Activity, other specified; Y92.89 Other specified places as the place of occurrence of the external cause; Y99.8 Other external cause status
CPT/HCPCS: 36415; 80053; 85025; 93005; 99284

== ENCOUNTER 2021-04-21 21:50 | Emergency (ER) | payer MEDICARE, MEDICAID ==
[~2021-04-21] VITALS: Ht 170.2 cm; Wt 79.5 kg
[~2021-04-21 21:50] MED LIST changes: -ALIR150P INJ; -LEVO25TA2 PO; -MEGE400O6 PO; -ONDA4TAB12 PO
[2021-04-21] MEDS ORDERED: CefTRIAXone 2gm/D5W 50ml BAG 50 ML IV ONE (22:10)
[2021-04-21] MEDS ORDERED: normal saline 1000ML IV soln IV ONE (22:10)
--- NOTE | 2021-04-21 22:13 | NUR ---
pt to ct
[2021-04-21] MEDS ORDERED: SENN8.6T19 PO (22:22)
[2021-04-21] MEDS ORDERED: ROBCFL PO (22:22)
--- NOTE | 2021-04-21 22:51 | NUR ---
relieving RN for break, pt is resting quietly, family at bedside, NS bolus infusing w/o,
[2021-04-21 22:57] LABS: BASOPHILS % (AUTO) 0.8 % (0-1); EOSINOPHILS # (AUTO) 0.5 X10'3 (0-0.9); EOSINOPHILS % (AUTO) 9.6 % (0-6); HEMATOCRIT 33.1 % (35.0-45.0); HEMOGLOBIN 11.3 g/dl (12.0-16.0); LYMPHOCYTES # (AUTO) 0.9 X10'3 (1.1-4.8); LYMPHOCYTES % (AUTO) 15.3 % (21-51); MEAN CORPUSCULAR HEMOGLOBIN 30.9 PG (27.0-31.0); MEAN CORPUSCULAR VOLUME 90.9 FL (78-98); MEAN PLATELET VOLUME 7.8 FL (7.4-10.4); MONOCYTES # (AUTO) 0.5 X10'3 (0-0.9); MONOCYTES % (AUTO) 9.7 % (2-12); NEUTROPHILS # (AUTO) 3.6 X10'3 (1.8-7.7); NEUTROPHILS % (AUTO) 64.6 % (42-75); PLATELET COUNT 261 X10'3 (140-440); RED BLOOD COUNT 3.64 X10'6 (4.20-5.60); RED CELL DISTRIBUTION WIDTH 14.3 % (11.5-14.5); WHITE BLOOD COUNT 5.6 X10'3 (4.5-11.0)
[2021-04-21 23:11] LABS: ALANINE AMINOTRANSFERASE 10 U/L (12-78); ALBUMIN 2.7 G/DL (3.4-5.0); ALBUMIN/GLOBULIN RATIO 0.6 (1.1-1.5); ALKALINE PHOSPHATASE 119 IU/L (46-116); ANION GAP 10 (8-16); ASPARTATE AMINO TRANSFERASE 11 U/L (10-37); BILIRUBIN,TOTAL 1.2 MG/DL (0.1-1.0); CHLORIDE 102 MMOL/L (99-107); CREATININE 1.56 MG/DL (0.40-0.90); GLUCOSE 111 MG/DL (70-104); MAGNESIUM 1.5 MG/DL (1.5-2.4); POTASSIUM 3.6 MMOL/L (3.5-5.1); SODIUM 139 MMOL/L (135-145); TOTAL CARBON DIOXIDE 27.4 MMOL/L (24-32); TOTAL PROTEIN 6.9 G/DL (6.4-8.2); eGFR 33 ML/MIN
[2021-04-21 23:17] LABS: CLARITY,URINE CLEAR (Clear); COLOR,URINE YELLOW (Yellow); GLUCOSE, URINE NEGATIVE (Neg); KETONES,URINE NEGATIVE (Neg); LEUKOCYTE ESTERASE ,URINE NEGATIVE (Neg); NITRITES, URINE NEGATIVE (Neg); OCCULT BLOOD,URINE NEGATIVE (Neg); PROTEIN,URINE NEGATIVE (Neg); UROBILINOGEN,URINE 0.2 E.U/dL (0.2-1.0)
[2021-04-21 23:17] LABS: BLOOD UREA NITROGEN 23 MG/DL (7-18); BUN/CREATININE RATIO 14.7 (6.6-38.0)
[2021-04-21 23:18] LABS: UA COLLECTION TYPE STRAIGHT CATH
[2021-04-21] MEDS ORDERED: ALBU6.7H9 INH (23:49)
[2021-04-21] MEDS ORDERED: CEPH250T PO (23:49)
[2021-04-21] MEDS ORDERED: DOXY100C76 PO (23:49)
[2021-04-21] MEDS ORDERED: PRED20TA PO (23:49)
--- NOTE | 2021-04-22 00:29 | NUR ---
arranging transport back to [facility] and awaiting fluids to finish infusing
--- NOTE | 2021-04-22 01:31 | NUR ---
report called to Eulalia Benitez to Betsy MYERS.
[2021-04-22 06:09] VITALS: BP 129/69
== END 2021-04-22 06:10 | disposition home or self-care (01) ==
LOC: ER 21:51
DX: J18.9 Pneumonia, unspecified organism (principal); J44.9 Chronic obstructive pulmonary disease, unspecified; I51.9 Heart disease, unspecified; Z88.5 Allergy status to narcotic agent; Z88.6 Allergy status to analgesic agent; Z79.899 Other long term (current) drug therapy
CPT/HCPCS: 36415; 70450; 71045; 80053; 81003; 82140; 83605; 83735; 84145; 85025; 87040; 93005; 96365; 99285; J0696; J7030; 87077; 87186

== ENCOUNTER 2021-04-22 18:14 | Emergency (ER) | payer MEDICARE, MEDICAID ==
[~2021-04-22] VITALS: Ht 170.2 cm; Wt 68.2 kg
[~2021-04-22 18:14] MED LIST changes: +ALBU6.7H9 INH; +CEPH250T PO; +DOXY100C76 PO; +PRED20TA PO; +ROBCFL PO; +SENN8.6T19 PO
[2021-04-22 19:50] LABS: BASOPHILS % (AUTO) 0.3 % (0-1); EOSINOPHILS % (AUTO) 0.4 % (0-6); HEMATOCRIT 26.5 % (35.0-45.0); LYMPHOCYTES # (AUTO) 0.2 X10'3 (1.1-4.8); LYMPHOCYTES % (AUTO) 6.1 % (21-51); MEAN CORPUSCULAR VOLUME 91.2 FL (78-98); MEAN PLATELET VOLUME 7.7 FL (7.4-10.4); MONOCYTES # (AUTO) 0.1 X10'3 (0-0.9); NEUTROPHILS # (AUTO) 3.6 X10'3 (1.8-7.7); NEUTROPHILS % (AUTO) 90.2 % (42-75); PLATELET COUNT 184 X10'3 (140-440); RED CELL DISTRIBUTION WIDTH 14.2 % (11.5-14.5)
[2021-04-22 19:57] LABS: ALBUMIN 1.9 G/DL (3.4-5.0); ALBUMIN/GLOBULIN RATIO 0.6 (1.1-1.5); ALKALINE PHOSPHATASE 85 IU/L (46-116); ANION GAP 11 (8-16); ASPARTATE AMINO TRANSFERASE 12 U/L (10-37); BILIRUBIN,TOTAL 0.7 MG/DL (0.1-1.0); BLOOD UREA NITROGEN 15 MG/DL (7-18); BUN/CREATININE RATIO 13.8 (6.6-38.0); CALCIUM 7.8 MG/DL (8.5-10.1); CHLORIDE 111 MMOL/L (99-107); CREATININE 1.09 MG/DL (0.40-0.90); GLUCOSE 143 MG/DL (70-104); POTASSIUM 3.5 MMOL/L (3.5-5.1); SODIUM 143 MMOL/L (135-145); TOTAL CARBON DIOXIDE 21.4 MMOL/L (24-32); TOTAL PROTEIN 5.3 G/DL (6.4-8.2); eGFR 50 ML/MIN
[2021-04-22 20:07] LABS: ALANINE AMINOTRANSFERASE 9 U/L (12-78)
[2021-04-22] MEDS ORDERED: DOXYCYCLINE 100MG CAPSULE PO STA (21:57)
[2021-04-22] MEDS ORDERED: cephalexin 250mg capsule PO ONE (22:00)
[2021-04-22 22:38] VITALS: BP 115/66
--- NOTE | 2021-04-22 22:40 | NUR ---
Three attempts made to call [facility] [phone]. No answer. Pt is ready for Discharge. [employer] called to transport patient. They give an ETA of approx 45 min.
== END 2021-04-22 22:50 | disposition home or self-care (01) ==
LOC: ER 18:14
DX: J18.9 Pneumonia, unspecified organism (principal); Z20.822 Contact with and (suspected) exposure to COVID-19; R41.82 Altered mental status, unspecified; R53.1 Weakness; I48.91 Unspecified atrial fibrillation; I25.10 Atherosclerotic heart disease of native coronary artery without angina pectoris; I25.2 Old myocardial infarction; J44.9 Chronic obstructive pulmonary disease, unspecified; Z86.73 Personal history of transient ischemic attack (TIA), and cerebral infarction without residual deficits; Z87.01 Personal history of pneumonia (recurrent); Z85.118 Personal history of other malignant neoplasm of bronchus and lung; Z98.51 Tubal ligation status; Z98.890 Other specified postprocedural states; Z88.5 Allergy status to narcotic agent; Z88.8 Allergy status to other drugs, medicaments and biological substances; Z79.2 Long term (current) use of antibiotics; Z79.899 Other long term (current) drug therapy
CPT/HCPCS: 36415; 71045; 80053; 85025; 87635; 99284; C9803

== ENCOUNTER 2021-08-18 21:06 | Emergency (ER) | payer MEDICARE, MEDICAID ==
[~2021-08-18] VITALS: Ht 170.2 cm; Wt 70.5 kg
[~2021-08-18 21:06] MED LIST changes: -CEPH250T PO; -DOXY100C76 PO; -PRED20TA PO
[2021-08-18 22:30] LABS: BASOPHILS % (AUTO) 0.7 % (0-1); EOSINOPHILS # (AUTO) 0.1 X10'3 (0-0.9); EOSINOPHILS % (AUTO) 1.9 % (0-6); HEMATOCRIT 38.9 % (35.0-45.0); HEMOGLOBIN 13.3 g/dl (12.0-16.0); LYMPHOCYTES # (AUTO) 1.2 X10'3 (1.1-4.8); LYMPHOCYTES % (AUTO) 26.1 % (21-51); MEAN CORPUSCULAR HEMOGLOBIN 29.8 PG (27.0-31.0); MEAN CORPUSCULAR HGB CONC 34.1 g/dL (33.0-36.5); MEAN CORPUSCULAR VOLUME 87.5 FL (78-98); MEAN PLATELET VOLUME 8.2 FL (7.4-10.4); MONOCYTES # (AUTO) 0.6 X10'3 (0-0.9); MONOCYTES % (AUTO) 12.3 % (2-12); NEUTROPHILS # (AUTO) 2.7 X10'3 (1.8-7.7); PLATELET COUNT 208 X10'3 (140-440); RED BLOOD COUNT 4.45 X10'6 (4.20-5.60); RED CELL DISTRIBUTION WIDTH 15.4 % (11.5-14.5); WHITE BLOOD COUNT 4.6 X10'3 (4.5-11.0)
[2021-08-18 22:44] LABS: ALANINE AMINOTRANSFERASE 23 U/L (12-78); ALBUMIN 3.1 G/DL (3.4-5.0); ALBUMIN/GLOBULIN RATIO 0.9 (1.1-1.5); ALKALINE PHOSPHATASE 71 IU/L (46-116); ANION GAP 11 (8-16); ASPARTATE AMINO TRANSFERASE 27 U/L (10-37); BILIRUBIN,TOTAL 0.7 MG/DL (0.1-1.0); BLOOD UREA NITROGEN 15 MG/DL (7-18); BUN/CREATININE RATIO 9.7 (6.6-38.0); CALCIUM 8.9 MG/DL (8.5-10.1); CHLORIDE 107 MMOL/L (99-107); CREATININE 1.54 MG/DL (0.40-0.90); GLUCOSE 110 MG/DL (70-104); POTASSIUM 3.5 MMOL/L (3.5-5.1); SODIUM 143 MMOL/L (135-145); TOTAL CARBON DIOXIDE 24.6 MMOL/L (24-32); TOTAL PROTEIN 6.5 G/DL (6.4-8.2); eGFR 33 ML/MIN
[2021-08-19] VITALS: BP 148/80
[2021-08-19 00:50] LABS: CLARITY,URINE CLOUDY (Clear); COLOR,URINE YELLOW (Yellow); GLUCOSE, URINE NEGATIVE (Neg); KETONES,URINE TRACE mg/dl (Neg); PROTEIN,URINE 30 mg/dl (Neg); UA COLLECTION TYPE FOLEY CATH
[2021-08-19 00:51] LABS: LEUKOCYTE ESTERASE ,URINE MODERATE (Neg); NITRITES, URINE NEGATIVE (Neg); OCCULT BLOOD,URINE MODERATE (Neg); UROBILINOGEN,URINE 0.2 E.U/dL (0.2-1.0)
[2021-08-19 00:56] LABS: WBC,URINE TNTC /HPF (0-4)
[2021-08-19 00:57] LABS: BACTERIA,URINE 2+ /HPF (Neg); RBC,URINE NONE SEEN /HPF (0-2); SQUAMOUS EPITHELIAL CELL,UR NONE SEEN /LPF (FEW)
[2021-08-19] MEDS ORDERED: CefTRIAXone/D5W-Rocephin 1gm 50 ML IV ONE (01:55)
[2021-08-19] MEDS ORDERED: CEFD300C3 PO (01:55)
== END 2021-08-19 03:07 | disposition home or self-care (01) ==
LOC: ER 21:07
DX: N39.0 Urinary tract infection, site not specified (principal); R53.1 Weakness; I48.91 Unspecified atrial fibrillation; I25.10 Atherosclerotic heart disease of native coronary artery without angina pectoris; I25.2 Old myocardial infarction; J44.9 Chronic obstructive pulmonary disease, unspecified; Z87.01 Personal history of pneumonia (recurrent); Z85.3 Personal history of malignant neoplasm of breast; Z85.118 Personal history of other malignant neoplasm of bronchus and lung; Z95.0 Presence of cardiac pacemaker; Z98.51 Tubal ligation status; Z90.10 Acquired absence of unspecified breast and nipple; Z88.8 Allergy status to other drugs, medicaments and biological substances; Z79.899 Other long term (current) drug therapy
CPT/HCPCS: 36415; 70450; 71045; 80053; 81001; 85025; 87077; 87088; 87186; 93005; 96365; 99285; J0696

== ENCOUNTER 2021-08-28 10:18 | Emergency (ER) | payer MEDICARE, MEDICAID ==
[~2021-08-28] VITALS: Ht 170.2 cm; Wt 80.9 kg
[~2021-08-28 10:18] MED LIST changes: +CEFD300C3 PO
[2021-08-28 10:45] VITALS: BP 113/69
[2021-08-28] MEDS ORDERED: acetaminophen 325mg tablet PO ONE (13:45)
== END 2021-08-28 14:55 | disposition home or self-care (01) ==
LOC: ER 10:19
DX: S40.021A Contusion of right upper arm, initial encounter (principal); S40.022A Contusion of left upper arm, initial encounter; I48.91 Unspecified atrial fibrillation; I25.10 Atherosclerotic heart disease of native coronary artery without angina pectoris; I25.2 Old myocardial infarction; J44.9 Chronic obstructive pulmonary disease, unspecified; Z87.01 Personal history of pneumonia (recurrent); Z86.73 Personal history of transient ischemic attack (TIA), and cerebral infarction without residual deficits; Z85.3 Personal history of malignant neoplasm of breast; Z85.118 Personal history of other malignant neoplasm of bronchus and lung; Z95.0 Presence of cardiac pacemaker; Z98.51 Tubal ligation status; Z90.10 Acquired absence of unspecified breast and nipple; Z90.89 Acquired absence of other organs; Z79.01 Long term (current) use of anticoagulants; Z79.2 Long term (current) use of antibiotics; Z79.899 Other long term (current) drug therapy; Z88.8 Allergy status to other drugs, medicaments and biological substances; W18.30XA Fall on same level, unspecified, initial encounter; Y93.89 Activity, other specified; Y92.89 Other specified places as the place of occurrence of the external cause; Y99.8 Other external cause status
CPT/HCPCS: 73503; 99283

== ENCOUNTER 2022-01-05 02:36 | Emergency (ER) | payer MEDICARE, MEDICAID ==
[~2022-01-05] VITALS: Ht 170.2 cm; Wt 72.7 kg
[~2022-01-05 02:36] MED LIST changes: -CEFD300C3 PO
[2022-01-05 04:00] LABS: BASOPHILS % (AUTO) 0.5 % (0-1); EOSINOPHILS # (AUTO) 0.1 X10'3 (0-0.9); EOSINOPHILS % (AUTO) 2.2 % (0-6); HEMATOCRIT 43.2 % (35.0-45.0); HEMOGLOBIN 14.2 g/dl (12.0-16.0); LYMPHOCYTES # (AUTO) 1.2 X10'3 (1.1-4.8); LYMPHOCYTES % (AUTO) 31.3 % (21-51); MEAN CORPUSCULAR HEMOGLOBIN 30.1 PG (27.0-31.0); MEAN CORPUSCULAR HGB CONC 32.9 g/dL (33.0-36.5); MEAN CORPUSCULAR VOLUME 91.5 FL (78-98); MEAN PLATELET VOLUME 8.3 FL (7.4-10.4); MONOCYTES # (AUTO) 0.7 X10'3 (0-0.9); MONOCYTES % (AUTO) 18.2 % (2-12); NEUTROPHILS # (AUTO) 1.8 X10'3 (1.8-7.7); NEUTROPHILS % (AUTO) 47.8 % (42-75); PLATELET COUNT 157 X10'3 (140-440); RED BLOOD COUNT 4.72 X10'6 (4.20-5.60); RED CELL DISTRIBUTION WIDTH 14.6 % (11.5-14.5); WHITE BLOOD COUNT 3.8 X10'3 (4.5-11.0)
[2022-01-05 04:19] LABS: ALANINE AMINOTRANSFERASE 29 U/L (12-78); ALBUMIN 3.1 G/DL (3.4-5.0); ALBUMIN/GLOBULIN RATIO 0.9 (1.1-1.5); ALKALINE PHOSPHATASE 61 IU/L (46-116); ANION GAP 9 (8-16); ASPARTATE AMINO TRANSFERASE 47 U/L (10-37); BILIRUBIN,DIRECT 0.2 MG/DL (0-0.3); BILIRUBIN,TOTAL 0.7 MG/DL (0.1-1.0); BLOOD UREA NITROGEN 11 MG/DL (7-18); BUN/CREATININE RATIO 8.3 (6.6-38.0); CHLORIDE 110 MMOL/L (99-107); CREATININE 1.33 MG/DL (0.40-0.90); GLUCOSE 108 MG/DL (70-104); LIPASE 56 U/L (73-393); POTASSIUM 3.4 MMOL/L (3.5-5.1); SODIUM 142 MMOL/L (135-145); TOTAL CARBON DIOXIDE 23.2 MMOL/L (24-32); TOTAL PROTEIN 6.6 G/DL (6.4-8.2); eGFR 40 ML/MIN
[2022-01-05 04:45] VITALS: BP 127/69
[2022-01-05 04:58] LABS: TOTAL CELLS COUNTED 100
[2022-01-05 04:59] LABS: PLATELET ESTIMATE NORMAL
[2022-01-05 06:31] LABS: CLARITY,URINE TURBID (Clear); COLOR,URINE YELLOW (Yellow); GLUCOSE, URINE NEGATIVE (Neg); KETONES,URINE TRACE mg/dl (Neg); LEUKOCYTE ESTERASE ,URINE SMALL (Neg); NITRITES, URINE POSITIVE (Neg); OCCULT BLOOD,URINE SMALL (Neg); PROTEIN,URINE TRACE mg/dl (Neg); UROBILINOGEN,URINE 0.2 E.U/dL (0.2-1.0)
[2022-01-05 06:32] LABS: UA COLLECTION TYPE NON-SPECIFIED
[2022-01-05 06:45] LABS: SQUAMOUS EPITHELIAL CELL,UR MODERATE /LPF (FEW); WBC,URINE TNTC /HPF (0-4)
[2022-01-05 06:46] LABS: RBC,URINE 0-2 /HPF (0-2)
[2022-01-05 06:48] LABS: BACTERIA,URINE 3+ /HPF (Neg)
[2022-01-05 06:49] LABS: WBC CLUMPS,URINE MANY /HPF (NEGATIVE)
[2022-01-05 06:50] LABS: CAL OXALATE CRYSTALS 4+ /HPF (NEGATIVE)
[2022-01-05] MEDS ORDERED: CefTRIAXone 2gm/D5W 50ml BAG 50 ML IV ONE (07:45)
[2022-01-05] MEDS ORDERED: CEPH-585 PO (09:02)
== END 2022-01-05 09:58 | disposition home or self-care (01) ==
LOC: ER 02:36
DX: N39.0 Urinary tract infection, site not specified (principal); R53.1 Weakness; E86.0 Dehydration; I48.91 Unspecified atrial fibrillation; I25.10 Atherosclerotic heart disease of native coronary artery without angina pectoris; I25.2 Old myocardial infarction; J44.9 Chronic obstructive pulmonary disease, unspecified; Z86.73 Personal history of transient ischemic attack (TIA), and cerebral infarction without residual deficits; Z87.01 Personal history of pneumonia (recurrent); Z87.440 Personal history of urinary (tract) infections; Z95.0 Presence of cardiac pacemaker; Z98.51 Tubal ligation status; Z98.890 Other specified postprocedural states; Z85.3 Personal history of malignant neoplasm of breast; Z85.118 Personal history of other malignant neoplasm of bronchus and lung; Z88.5 Allergy status to narcotic agent; Z88.8 Allergy status to other drugs, medicaments and biological substances; Z79.2 Long term (current) use of antibiotics; Z79.899 Other long term (current) drug therapy
CPT/HCPCS: 36415; 71045; 80048; 80076; 81001; 83605; 83690; 85007; 85025; 93005; 96365; 99285; J0696

== ENCOUNTER 2022-08-28 14:58 | Emergency (ER) | payer MEDICARE, MEDICAID ==
[~2022-08-28] VITALS: Ht 170.2 cm; Wt 80.0 kg
[~2022-08-28 14:58] MED LIST changes: +ALBU6.7H14 INH; -ALBU6.7H9 INH; +CEPH-585 PO
[2022-08-28 15:33] LABS: BASOPHILS % (AUTO) 0.6 % (0-1); EOSINOPHILS # (AUTO) 0.1 X10'3 (0-0.9); EOSINOPHILS % (AUTO) 1.6 % (0-6); HEMATOCRIT 42.2 % (35.0-45.0); HEMOGLOBIN 13.8 g/dl (12.0-16.0); LYMPHOCYTES # (AUTO) 1.4 X10'3 (1.1-4.8); LYMPHOCYTES % (AUTO) 32.6 % (21-51); MEAN CORPUSCULAR HEMOGLOBIN 29.7 PG (27.0-31.0); MEAN CORPUSCULAR HGB CONC 32.7 g/dL (33.0-36.5); MEAN CORPUSCULAR VOLUME 90.8 FL (78-98); MONOCYTES # (AUTO) 0.5 X10'3 (0-0.9); NEUTROPHILS # (AUTO) 2.3 X10'3 (1.8-7.7); NEUTROPHILS % (AUTO) 53.2 % (42-75); PLATELET COUNT 187 X10'3 (140-440); RED BLOOD COUNT 4.65 X10'6 (4.20-5.60); RED CELL DISTRIBUTION WIDTH 14.6 % (11.5-14.5); WHITE BLOOD COUNT 4.4 X10'3 (4.5-11.0)
[2022-08-28 15:49] LABS: ALANINE AMINOTRANSFERASE 24 U/L (12-78); ALBUMIN 3.6 G/DL (3.4-5.0); ALBUMIN/GLOBULIN RATIO 1.1 (1.1-1.5); ALKALINE PHOSPHATASE 81 IU/L (46-116); ANION GAP 13 (8-16); ASPARTATE AMINO TRANSFERASE 30 U/L (10-37); BILIRUBIN,TOTAL 0.8 MG/DL (0.1-1.0); BLOOD UREA NITROGEN 19 MG/DL (7-18); BUN/CREATININE RATIO 12.3 (6.6-38.0); CALCIUM 9.5 MG/DL (8.5-10.1); CHLORIDE 106 MMOL/L (99-107); CREATININE 1.55 MG/DL (0.40-0.90); GLUCOSE 99 MG/DL (70-104); POTASSIUM 3.7 MMOL/L (3.5-5.1); SODIUM 144 MMOL/L (135-145); TOTAL CARBON DIOXIDE 25.1 MMOL/L (24-32); eGFR 33 ML/MIN
[2022-08-28 18:54] VITALS: BP 121/68
== END 2022-08-28 18:57 | disposition home or self-care (01) ==
LOC: ER 14:58
DX: R53.1 Weakness (principal); E86.0 Dehydration; R11.0 Nausea; R42 Dizziness and giddiness; I48.91 Unspecified atrial fibrillation; I25.10 Atherosclerotic heart disease of native coronary artery without angina pectoris; I25.2 Old myocardial infarction; J44.9 Chronic obstructive pulmonary disease, unspecified; Z86.73 Personal history of transient ischemic attack (TIA), and cerebral infarction without residual deficits; Z87.01 Personal history of pneumonia (recurrent); Z87.440 Personal history of urinary (tract) infections; Z85.3 Personal history of malignant neoplasm of breast; Z85.118 Personal history of other malignant neoplasm of bronchus and lung; Z95.0 Presence of cardiac pacemaker; Z98.51 Tubal ligation status; Z98.890 Other specified postprocedural states; Z88.5 Allergy status to narcotic agent; Z88.8 Allergy status to other drugs, medicaments and biological substances; Z79.2 Long term (current) use of antibiotics; Z79.899 Other long term (current) drug therapy
CPT/HCPCS: 36415; 71045; 80053; 82948; 83880; 84484; 85025; 93005; 99285

== ENCOUNTER 2023-03-04 10:29 | Emergency (ER) | payer MEDICARE, MEDICAID ==
[~2023-03-04] VITALS: Ht 170.2 cm; Wt 90.9 kg
[~2023-03-04 10:29] MED LIST changes: -CEPH-585 PO
[2023-03-04 11:06] VITALS: BP 127/79
[2023-03-04 13:30] LABS: BASOPHILS % (AUTO) 0.2 % (0-1); EOSINOPHILS % (AUTO) 0.3 % (0-6); HEMOGLOBIN 14.3 g/dl (12.0-16.0); LYMPHOCYTES # (AUTO) 0.8 X10'3 (1.1-4.8); LYMPHOCYTES % (AUTO) 9.3 % (21-51); MEAN CORPUSCULAR HGB CONC 33.2 g/dL (33.0-36.5); MEAN CORPUSCULAR VOLUME 90.6 FL (78-98); MEAN PLATELET VOLUME 8.7 FL (7.4-10.4); MONOCYTES # (AUTO) 0.7 X10'3 (0-0.9); MONOCYTES % (AUTO) 7.7 % (2-12); NEUTROPHILS # (AUTO) 7.3 X10'3 (1.8-7.7); NEUTROPHILS % (AUTO) 82.5 % (42-75); PLATELET COUNT 188 X10'3 (140-440); RED BLOOD COUNT 4.75 X10'6 (4.20-5.60); RED CELL DISTRIBUTION WIDTH 15.1 % (11.5-14.5); WHITE BLOOD COUNT 8.9 X10'3 (4.5-11.0)
[2023-03-04 13:39] LABS: ALANINE AMINOTRANSFERASE 18 U/L (12-78); ALBUMIN 3.3 G/DL (3.4-5.0); ALBUMIN/GLOBULIN RATIO 0.9 (1.1-1.5); ALKALINE PHOSPHATASE 78 IU/L (46-116); ANION GAP 9 (8-16); ASPARTATE AMINO TRANSFERASE 22 U/L (10-37); BLOOD UREA NITROGEN 22 MG/DL (7-18); BUN/CREATININE RATIO 11.7 (10.0-20.0); CHLORIDE 104 MMOL/L (99-107); CREATININE 1.88 MG/DL (0.40-0.90); GLUCOSE 115 MG/DL (70-104); POTASSIUM 4.4 MMOL/L (3.5-5.1); SODIUM 139 MMOL/L (135-145); TOTAL CARBON DIOXIDE 26.4 MMOL/L (24-32); eGFR 26 ML/MIN
--- NOTE | 2023-03-04 14:38 | NUR ---
pt ref straight cath
[2023-03-04] MEDS ORDERED: SULF1TAB49 PO (15:04)
[2023-03-04] MEDS ORDERED: sulfamethoxazole/trimethoprim DS (800/160mg) tablet PO ONE (15:05)
== END 2023-03-04 15:42 | disposition home or self-care (01) ==
LOC: ER 10:29
DX: N39.0 Urinary tract infection, site not specified (principal); N10 Acute pyelonephritis; I11.9 Hypertensive heart disease without heart failure; J44.9 Chronic obstructive pulmonary disease, unspecified; E03.9 Hypothyroidism, unspecified; I11.0 Hypertensive heart disease with heart failure; Z88.5 Allergy status to narcotic agent; Z79.1 Long term (current) use of non-steroidal anti-inflammatories (NSAID); Z79.2 Long term (current) use of antibiotics
CPT/HCPCS: 36415; 76770; 80053; 85025; 99283; 99284; A4353

== ENCOUNTER 2024-01-31 17:40 | Inpatient (IN) | payer MEDICARE, MEDICAID ==
[~2024-01-31] VITALS: Ht 157.5 cm; Wt 86.7 kg
[~2024-01-31 17:40] MED LIST changes: -ALBU6.7H14 INH; +AMLO2.5T2 PO; -ROBCFL PO; -SENN8.6T19 PO
[2024-01-31 18:02] LABS: BASOPHILS # (AUTO) 0.1 X10'3 (0-0.2); BASOPHILS % (AUTO) 0.4 % (0-1); EOSINOPHILS % (AUTO) 0 % (0-6); HEMATOCRIT 25.8 % (35.0-45.0); HEMOGLOBIN 7.9 g/dl (12.0-16.0); LYMPHOCYTES # (AUTO) 0.5 X10'3 (1.1-4.8); LYMPHOCYTES % (AUTO) 3.8 % (21-51); MEAN CORPUSCULAR HGB CONC 30.6 g/dL (33.0-36.5); MEAN CORPUSCULAR VOLUME 75.2 FL (78-98); MEAN PLATELET VOLUME 7.5 FL (7.4-10.4); MONOCYTES # (AUTO) 0.8 X10'3 (0-0.9); MONOCYTES % (AUTO) 6.1 % (2-12); NEUTROPHILS # (AUTO) 11.6 X10'3 (1.8-7.7); NEUTROPHILS % (AUTO) 89.7 % (42-75); PLATELET COUNT 245 X10'3 (140-440); RED BLOOD COUNT 3.44 X10'6 (4.20-5.60); RED CELL DISTRIBUTION WIDTH 20.3 % (11.5-14.5)
[2024-01-31 18:11] LABS: ALBUMIN 2.8 G/DL (3.4-5.0); ANION GAP 9 (8-16); BLOOD UREA NITROGEN 32 MG/DL (7-18); CALCIUM 7.7 MG/DL (8.5-10.1); CHLORIDE 107 MMOL/L (99-107); CREATININE 1.28 MG/DL (0.40-0.90); GLUCOSE 108 MG/DL (70-104); POTASSIUM 3.8 MMOL/L (3.5-5.1); SODIUM 143 MMOL/L (135-145); TOTAL CARBON DIOXIDE 27.1 MMOL/L (24-32); eCRCL 31 ML/MIN; eGFR 41 ML/MIN
[2024-01-31] MEDS: normal saline 1000ML IV soln IVB ONE (18:29)
[2024-01-31 18:30] LABS: ABG BASE EXCESS -1.9 mmol/L (-2.0-2.0); ABG HCO3 21.5 mmol/L (22.0-26.0); ABG OXYGEN SATURATION 92.7 % (94-97); ABG PCO2 (T) 34.1 mmHg (32.0-45.0); ABG PH (T) 7.427 (7.350-7.450); ABG PO2 (T) 74.8 mmHg (75.0-100.0); ALLEN'S TEST POSITIVE; FCOHb 1.1 % (0.0-3.9); FHHb 7.2 % (0.0-5.0); FMetHb 0.3 % (0.0-1.5); FO2Hb 91.4 % (94-97); MODE ROOM AIR; PATIENT TEMPERATURE 39.4; TOTAL HEMOGLOBIN 7.9 G/dl (12.0-16.0)
[2024-01-31] MEDS: normal saline 1000ML IV soln IV ONE (18:32)
[2024-01-31] MEDS: CefTRIAXone 2gm/D5W 50ml BAG 50 ML IV ONE (18:33)
[2024-01-31 18:44] LABS: MAGNESIUM 1.4 MG/DL (1.5-2.4); PRO BRAIN NATRIURETIC PEPTIDE 582 PG/ML (0-125)
[2024-01-31] MEDS: magnesium 2GM in 50ml NS 50 ML IV ONE (19:08)
[2024-01-31 19:30] LABS: BILIRUBIN,URINE NEGATIVE (Neg); CLARITY,URINE CLEAR (Clear); COLOR,URINE YELLOW (Yellow); GLUCOSE, URINE NEGATIVE (Neg); KETONES,URINE NEGATIVE (Neg); LEUKOCYTE ESTERASE ,URINE NEGATIVE (Neg); NITRITES, URINE NEGATIVE (Neg); OCCULT BLOOD,URINE NEGATIVE (Neg); PH,URINE 5.5 (4.8-8.0); PROTEIN,URINE NEGATIVE (Neg); UROBILINOGEN,URINE 0.2 E.U/dL (0.2-1.0)
[2024-01-31 19:35] LABS: UA COLLECTION TYPE FOLEY CATH
[2024-01-31 19:47] LABS: ANISOCYTOSIS 3+; MICROCYTOSIS 1+; PLATELET ESTIMATE NORMAL
[2024-01-31 19:48] LABS: HYPOCHROMASIA 1+
[2024-01-31 20:44] LABS: C-REACTIVE PROTEIN 2.89 MG/DL (0.0-0.5)
[2024-01-31] MEDS: ketorolac trometh. 30mg/ml inj. IV ONE (21:29)
[2024-01-31] MEDS: piperacillin/tazo 3.375gm/50ml 50 ML IV SCH (21:57)
[2024-01-31 22:09] LABS: APTT 29 SECONDS (22-32); D-DIMER 3.47 MG/L FEU (0-0.50); INR 1.1 INR; PROTHROMBIN TIME 11.5 SECONDS (9.0-12.0)
[2024-01-31] MEDS: methylPREDNISolone sod succ 125mg/2ml vial IV ONE (22:59)
[2024-01-31] MEDS ORDERED: acetaminophen 325mg tablet PO PRN (23:20)
[2024-01-31] MEDS ORDERED: ondansetron/PF 4mg/2ml inj IV PRN (23:20)
[2024-01-31] MEDS ORDERED: magnesium Cl slow-release 64mg tablet PO PRN (23:20)
[2024-01-31] MEDS ORDERED: potassium Cl 40MEQ/1/2NS 520ml 520 ML IV PRN (23:20)
[2024-01-31] MEDS ORDERED: potassium Cl 20 mEq SR tablet PO PRN ×2 (23:20)
[2024-01-31] MEDS ORDERED: magnesium 4gm in 100ml NS 100 ML IV PRN (23:20)
[2024-01-31] MEDS ORDERED: acetaminophen 650mg rectal suppository RC PRN (23:20)
[2024-01-31] MEDS ORDERED: albumin (human) 25% 100ml IV 100 ML in dextrose 5% water 500ml 400 ML IV ONE (23:25)
[2024-01-31] MEDS: normal saline 1000ml 1,000 ML IV SCH (23:27)
[2024-01-31] MEDS ORDERED: albumin (Human) 5% 250ml 250 ML IV ONE (23:50)
[2024-02-01] VITALS (10 sets, daily range): BP systolic 111–144; BP diastolic 50–67; PULSE 69–80; RESP 12–25; TEMP 97.7–98.1; O2SAT 90–98
[2024-02-01] MEDS: albumin (Human) 5% 250ml 250 ML IV ONE ×3 (00:04→01:47)
[2024-02-01] MEDS: vancomycin/NS 1 GM ADD-VANTAGE 250 ML IV SCH (02:18)
[2024-02-01] MEDS: ipratropium/albuterol 3ml nebule NEB SCH (03:16)
[2024-02-01] MEDS: methylPREDNISolone sod succ 125mg/2ml vial IV ONE (06:00)
[2024-02-01] MEDS ORDERED: ipratropium/albuterol 3ml nebule NEB PRN (07:00)
[2024-02-01] MEDS: heparin, porcine 5000 units/ml vial SQ SCH (08:00)
[2024-02-01 13:37] LABS: BASOPHILS % (AUTO) 0.1 % (0-1); EOSINOPHILS % (AUTO) 0 % (0-6); HEMATOCRIT 24.1 % (35.0-45.0); HEMOGLOBIN 7.1 g/dl (12.0-16.0); LYMPHOCYTES # (AUTO) 0.2 X10'3 (1.1-4.8); LYMPHOCYTES % (AUTO) 1.5 % (21-51); MEAN CORPUSCULAR HEMOGLOBIN 22.4 PG (27.0-31.0); MEAN CORPUSCULAR HGB CONC 29.6 g/dL (33.0-36.5); MEAN CORPUSCULAR VOLUME 75.5 FL (78-98); MEAN PLATELET VOLUME 7.6 FL (7.4-10.4); MONOCYTES # (AUTO) 0.2 X10'3 (0-0.9); NEUTROPHILS # (AUTO) 11.1 X10'3 (1.8-7.7); NEUTROPHILS % (AUTO) 96.4 % (42-75); PLATELET COUNT 194 X10'3 (140-440); RED BLOOD COUNT 3.19 X10'6 (4.20-5.60); RED CELL DISTRIBUTION WIDTH 20.7 % (11.5-14.5); WHITE BLOOD COUNT 11.5 X10'3 (4.5-11.0)
[2024-02-01 13:43] LABS: ALBUMIN 2.5 G/DL (3.4-5.0); ANION GAP 15 (8-16); BLOOD UREA NITROGEN 28 MG/DL (7-18); BUN/CREATININE RATIO 20.7 (10.0-20.0); CALCIUM 7.9 MG/DL (8.5-10.1); CHLORIDE 110 MMOL/L (99-107); CREATININE 1.35 MG/DL (0.40-0.90); GLUCOSE 118 MG/DL (70-104); POTASSIUM 3.5 MMOL/L (3.5-5.1); SODIUM 146 MMOL/L (135-145); TOTAL CARBON DIOXIDE 21.5 MMOL/L (24-32); eCRCL 30 ML/MIN; eGFR 39 ML/MIN
[2024-02-01] MEDS: sodium chloride 0.45% 1,000 ML IV SCH (19:20)
[2024-02-02] VITALS (10 sets, daily range): BP systolic 141–173; BP diastolic 64–71; PULSE 65–71; RESP 12–22; TEMP 97.1–98.2; O2SAT 94–98
[2024-02-02] MEDS: vancomycin/NS 1 GM ADD-VANTAGE 250 ML IV SCH (02:08)
[2024-02-02] MEDS: hydrocortisone sod succ/PF 100mg/2ml inj. IV SCH (09:17)
[2024-02-02 14:52] LABS: BASOPHILS % (AUTO) 0 % (0-1); EOSINOPHILS % (AUTO) 0 % (0-6); LYMPHOCYTES # (AUTO) 0.3 X10'3 (1.1-4.8); LYMPHOCYTES % (AUTO) 2.4 % (21-51); MEAN CORPUSCULAR HEMOGLOBIN 22.8 PG (27.0-31.0); MEAN CORPUSCULAR HGB CONC 30.3 g/dL (33.0-36.5); MEAN CORPUSCULAR VOLUME 75.5 FL (78-98); MEAN PLATELET VOLUME 7.8 FL (7.4-10.4); MONOCYTES # (AUTO) 0.3 X10'3 (0-0.9); MONOCYTES % (AUTO) 2.9 % (2-12); NEUTROPHILS % (AUTO) 94.7 % (42-75); PLATELET COUNT 224 X10'3 (140-440); RED BLOOD COUNT 2.86 X10'6 (4.20-5.60); RED CELL DISTRIBUTION WIDTH 20.4 % (11.5-14.5); WHITE BLOOD COUNT 10.6 X10'3 (4.5-11.0)
[2024-02-02 14:56] LABS: HEMOGLOBIN 6.5 g/dl (12.0-16.0)
[2024-02-02 14:57] LABS: HEMATOCRIT 21.6 % (35.0-45.0)
[2024-02-02 15:06] LABS: ALBUMIN 2.3 G/DL (3.4-5.0); ANION GAP 11 (8-16); BLOOD UREA NITROGEN 36 MG/DL (7-18); CALCIUM 7.7 MG/DL (8.5-10.1); CHLORIDE 111 MMOL/L (99-107); CREATININE 1.24 MG/DL (0.40-0.90); GLUCOSE 184 MG/DL (70-104); POTASSIUM 3.6 MMOL/L (3.5-5.1); SODIUM 143 MMOL/L (135-145); TOTAL CARBON DIOXIDE 21.4 MMOL/L (24-32); eCRCL 32 ML/MIN; eGFR 43 ML/MIN
[2024-02-02 15:09] LABS: % IRON SATURATION 2 % (11-46); IRON 5 UG/DL (49-151); TOTAL IRON BINDING CAPACITY 209 UG/DL (259-388)
[2024-02-02 15:14] LABS: PLATELET ESTIMATE NORMAL
[2024-02-02 15:15] LABS: ANISOCYTOSIS 3+; HYPOCHROMASIA 1+; MICROCYTOSIS 1+; SPHEROCYTES FEW
[2024-02-02] MEDS: ziprasidone IM 20mg inj **IM only IM PRN (20:55)
[2024-02-03] VITALS (15 sets, daily range): BP systolic 129–175; BP diastolic 64–84; PULSE 58–99; RESP 14–24; TEMP 97.1–98.9; O2SAT 96–99
[2024-02-03] MEDS: iron sucrose complex injection 300 MG in normal saline 250ml IV soln 250 ML IV SCH (08:00)
[2024-02-03] MEDS: levoFLOXACIN-Levaquin 500mg/D5 100 ML IV SCH (08:00)
[2024-02-03 11:00] LABS: BASOPHILS % (AUTO) 0.1 % (0-1); EOSINOPHILS % (AUTO) 0 % (0-6); LYMPHOCYTES # (AUTO) 0.6 X10'3 (1.1-4.8); LYMPHOCYTES % (AUTO) 9.2 % (21-51); MEAN CORPUSCULAR HEMOGLOBIN 22.9 PG (27.0-31.0); MEAN CORPUSCULAR HGB CONC 30.3 g/dL (33.0-36.5); MEAN CORPUSCULAR VOLUME 75.5 FL (78-98); MONOCYTES # (AUTO) 0.4 X10'3 (0-0.9); MONOCYTES % (AUTO) 6.3 % (2-12); NEUTROPHILS # (AUTO) 5.6 X10'3 (1.8-7.7); NEUTROPHILS % (AUTO) 84.4 % (42-75); PLATELET COUNT 222 X10'3 (140-440); RED BLOOD COUNT 2.83 X10'6 (4.20-5.60); RED CELL DISTRIBUTION WIDTH 20.3 % (11.5-14.5); WHITE BLOOD COUNT 6.7 X10'3 (4.5-11.0)
[2024-02-03 11:10] LABS: HEMATOCRIT 21.4 % (35.0-45.0); HEMOGLOBIN 6.5 g/dl (12.0-16.0)
[2024-02-03 11:17] LABS: ALBUMIN 2.2 G/DL (3.4-5.0); ANION GAP 10 (8-16); BLOOD UREA NITROGEN 32 MG/DL (7-18); BUN/CREATININE RATIO 29.1 (10.0-20.0); CALCIUM 8.1 MG/DL (8.5-10.1); CHLORIDE 114 MMOL/L (99-107); GLUCOSE 95 MG/DL (70-104); POTASSIUM 3.6 MMOL/L (3.5-5.1); SODIUM 147 MMOL/L (135-145); TOTAL CARBON DIOXIDE 23.2 MMOL/L (24-32); eCRCL 37 ML/MIN; eGFR 49 ML/MIN
[2024-02-03] MEDS: furosemide 20 MG/2 ML vial IV ONE (15:40)
[2024-02-04] VITALS (8 sets, daily range): BP systolic 98–147; BP diastolic 58–75; PULSE 57–65; RESP 16–22; TEMP 97–98; O2SAT 94–99
[2024-02-04] MEDS ORDERED: VANCOMYCIN LEVEL IJ ONE (01:30)
[2024-02-04 10:00] LABS: BASOPHILS % (AUTO) 0.1 % (0-1); EOSINOPHILS % (AUTO) 0.9 % (0-6); HEMATOCRIT 25.5 % (35.0-45.0); HEMOGLOBIN 8.2 g/dl (12.0-16.0); LYMPHOCYTES # (AUTO) 0.5 X10'3 (1.1-4.8); LYMPHOCYTES % (AUTO) 9.2 % (21-51); MEAN CORPUSCULAR HEMOGLOBIN 24.2 PG (27.0-31.0); MEAN CORPUSCULAR HGB CONC 32.3 g/dL (33.0-36.5); MEAN PLATELET VOLUME 7.7 FL (7.4-10.4); MONOCYTES # (AUTO) 0.5 X10'3 (0-0.9); MONOCYTES % (AUTO) 8.4 % (2-12); NEUTROPHILS # (AUTO) 4.4 X10'3 (1.8-7.7); NEUTROPHILS % (AUTO) 81.4 % (42-75); PLATELET COUNT 211 X10'3 (140-440); RED CELL DISTRIBUTION WIDTH 19.5 % (11.5-14.5); WHITE BLOOD COUNT 5.4 X10'3 (4.5-11.0)
[2024-02-04] MEDS: levoFLOXACIN 250mg tablet PO SCH (12:41)
[2024-02-04] MEDS: lactose-reduced food (Ensure High Protein) 237ml bottle PO SCH (12:49)
[2024-02-04] MEDS: dextrose 5%-water 1,000 ML IV SCH (21:55)
[2024-02-04] MEDS: cefazolin 2gm/D5W 100mL 100 ML IV SCH (22:38)
[2024-02-04] MEDS: diltiazem 30mg tablet PO ONE (23:25)
[2024-02-05 02:00] VITALS: BP 135/79; PULSE 59; RESP 16; TEMP 97.8; O2SAT 97
[2024-02-05 07:00] VITALS: BP 136/81; PULSE 100; RESP 18; TEMP 97.1; O2SAT 98
[2024-02-05] MEDS: apixaban 2.5mg tablet PO SCH (08:00)
[2024-02-05 11:54] VITALS: BP 128/84; PULSE 129; RESP 20; TEMP 97.2; O2SAT 97
[2024-02-05] MEDS: diltiazem 5mg/ml 5ml inj. IV ONE (12:07)
[2024-02-05 12:17] VITALS: BP 106/76; PULSE 105
[2024-02-05 12:41] LABS: BASOPHILS % (AUTO) 0.5 % (0-1); EOSINOPHILS % (AUTO) 0.2 % (0-6); HEMATOCRIT 28.7 % (35.0-45.0); LYMPHOCYTES # (AUTO) 0.8 X10'3 (1.1-4.8); LYMPHOCYTES % (AUTO) 10.5 % (21-51); MEAN CORPUSCULAR HEMOGLOBIN 23.8 PG (27.0-31.0); MEAN CORPUSCULAR HGB CONC 31.5 g/dL (33.0-36.5); MEAN CORPUSCULAR VOLUME 75.5 FL (78-98); MEAN PLATELET VOLUME 7.8 FL (7.4-10.4); MONOCYTES # (AUTO) 0.6 X10'3 (0-0.9); NEUTROPHILS # (AUTO) 5.8 X10'3 (1.8-7.7); NEUTROPHILS % (AUTO) 80.8 % (42-75); PLATELET COUNT 222 X10'3 (140-440); WHITE BLOOD COUNT 7.2 X10'3 (4.5-11.0)
[2024-02-05 12:57] LABS: ALANINE AMINOTRANSFERASE 17 U/L (12-78); ALBUMIN 2.3 G/DL (3.4-5.0); ALBUMIN/GLOBULIN RATIO 0.6 (1.1-1.5); ALKALINE PHOSPHATASE 44 IU/L (46-116); ANION GAP 7 (8-16); ASPARTATE AMINO TRANSFERASE 20 U/L (10-37); BILIRUBIN,TOTAL 0.4 MG/DL (0.1-1.0); BLOOD UREA NITROGEN 18 MG/DL (7-18); BUN/CREATININE RATIO 15.5 (10.0-20.0); CALCIUM 7.7 MG/DL (8.5-10.1); CHLORIDE 105 MMOL/L (99-107); CREATININE 1.16 MG/DL (0.40-0.90); GLUCOSE 134 MG/DL (70-104); POTASSIUM 3.5 MMOL/L (3.5-5.1); SODIUM 139 MMOL/L (135-145); TOTAL CARBON DIOXIDE 27.2 MMOL/L (24-32); TOTAL PROTEIN 5.9 G/DL (6.4-8.2); eCRCL 35 ML/MIN; eGFR 46 ML/MIN
[2024-02-05] MEDS ORDERED: ondansetron 4mg rapidly disintigrating tab PO PRN (15:05)
== END 2024-02-05 15:45 | DRG 871 ==
LOC: ER 17:41 → ED HOLD 23:16 → PCU 3S 02-01 04:58
PROVIDERS: ADMIT Internal Medicine; ATTEND Family Medicine
PROC: 30233N1 Transfusion of Nonautologous Red Blood Cells into Peripheral Vein, Percutaneous Approach (ICD-10-PCS; principal; 2024-02-03)
PROC: 05HB33Z Insertion of Infusion Device into Right Basilic Vein, Percutaneous Approach (ICD-10-PCS; 2024-02-04)
PROC: B54MZZA Ultrasonography of Right Upper Extremity Veins, Guidance (ICD-10-PCS; 2024-02-04)
DX: A41.01 Sepsis due to Methicillin susceptible Staphylococcus aureus (principal); G93.41 Metabolic encephalopathy; J96.01 Acute respiratory failure with hypoxia; R65.21 Severe sepsis with septic shock; I13.0 Hypertensive heart and chronic kidney disease with heart failure and stage 1 through stage 4 chronic kidney disease, or unspecified chronic kidney disease; I50.32 Chronic diastolic (congestive) heart failure; N17.9 Acute kidney failure, unspecified; E87.0 Hyperosmolality and hypernatremia; Z66 Do not resuscitate; D50.9 Iron deficiency anemia, unspecified; E89.0 Postprocedural hypothyroidism; I25.10 Atherosclerotic heart disease of native coronary artery without angina pectoris; R13.12 Dysphagia, oropharyngeal phase; E87.8 Other disorders of electrolyte and fluid balance, not elsewhere classified; I48.91 Unspecified atrial fibrillation; N18.9 Chronic kidney disease, unspecified; J44.9 Chronic obstructive pulmonary disease, unspecified; R91.1 Solitary pulmonary nodule; Z20.822 Contact with and (suspected) exposure to COVID-19; F03.90 Unspecified dementia, unspecified severity, without behavioral disturbance, psychotic disturbance, mood disturbance, and anxiety; Z95.0 Presence of cardiac pacemaker; Z85.3 Personal history of malignant neoplasm of breast; Z85.118 Personal history of other malignant neoplasm of bronchus and lung; Z87.440 Personal history of urinary (tract) infections; Z74.01 Bed confinement status; Z88.5 Allergy status to narcotic agent; Z88.6 Allergy status to analgesic agent; Z79.899 Other long term (current) drug therapy; Z79.02 Long term (current) use of antithrombotics/antiplatelets; I25.2 Old myocardial infarction; Z86.73 Personal history of transient ischemic attack (TIA), and cerebral infarction without residual deficits; Z98.51 Tubal ligation status; Z93.1 Gastrostomy status
CPT/HCPCS: 36410; 36415; 36430; 36600; 71045; 74176; 76942; 80048; 80053; 81003; 82803; 83540; 83550; 83605; 83735; 83880; 84145; 85008; 85018; 85025; 85379; 85610; 85730; 86140; 86885; 86900; 86901; 86920; 87040; 87077; 87081; 87186; 87502; 87503; 87811; 92508; 92616; 93005; 93306; 94640; 94760; 99291; A4358; A4620; A5200; A6213; A6455; C1751; G0378; J0690; J0696; J1644; J1720; J1756; J1885; J1940; J2543; J2930; J3370; J3475; J3486; J3490; J7030; J7040; J7050; J7070; P9016; P9045

== ENCOUNTER 2024-03-20 08:49 | Day surgery (SDC) | payer MEDICARE, MEDICAID ==
[~2024-03-20] VITALS: Ht 170.2 cm; Wt 78.1 kg
[2024-03-20] MEDS ORDERED: ASCO-134 PO (09:42)
[2024-03-20] MEDS ORDERED: FERR324T4 PO (09:43)
[2024-03-20] MEDS ORDERED: PANT-47 PO (09:44)
[2024-03-20] MEDS ORDERED: LEVO200T8 PO (09:45)
[2024-03-20] MEDS ORDERED: diphenhydrAMINE 50 mg/ml inj ONE (10:52)
[2024-03-20] MEDS ORDERED: MIDAZolam 1 MG/ML 5ML VIAL ONE (10:52)
[2024-03-20] MEDS ORDERED: fentaNYL/PF 50MCG/1 ML 2ML syringe ONE (10:52)
[2024-03-20 11:30] VITALS: BP 105/63; PULSE 57; RESP 12; O2SAT 100
[2024-03-20 11:40] VITALS: BP 95/64; PULSE 52; RESP 10; O2SAT 98
[2024-03-20 11:50] VITALS: BP 112/60; PULSE 58; RESP 12; O2SAT 97
[2024-03-20 12:00] VITALS: BP 135/66; PULSE 52; RESP 12; O2SAT 97
== END 2024-03-20 14:07 ==
LOC: GI LAB 08:49
PROVIDERS: ATTEND Internal Medicine Gastroenterology
DX: K92.1 Melena (principal); C20 Malignant neoplasm of rectum; K57.30 Diverticulosis of large intestine without perforation or abscess without bleeding; I25.2 Old myocardial infarction
CPT/HCPCS: 45380; G0500; J2250; J3010; J7030; Z7512; 99152; 99153; A4620; J1200